=== PATIENT | female | born 1950 | race African-American/Black ===

== ENCOUNTER 2020-05-28 04:10 | Inpatient (IN) | payer OTHER ==
[2020-05-28] MEDS ORDERED: SUCCINYLCHOLINE CHLORIDE 200 MG/10 ML SYRINGE ONE (08:06)
[2020-05-28] MEDS ORDERED: PROPOFOL 20 ML ONE ×3 (08:06→08:11)
[2020-05-28] MEDS ORDERED: ceFAZolin 2 GRAM PREMIX BAG IVPB ONE (08:10)
[2020-05-28] MEDS ORDERED: KETAMINE HCL 200 MG/20 ML VIAL ONE (08:15)
[2020-05-28] MEDS ORDERED: EPHEDRINE SULFATE/0.9% NACL/PF 50 MG/10 ML SYRINGE NR ONE (08:54)
[2020-05-28] MEDS ORDERED: ONDANSETRON 4 MG/2 ML VIAL IVPUSH PRN (09:59)
[2020-05-28] MEDS ORDERED: oxyCODONE HCL 5 MG TABLET PO PRN (09:59)
[2020-05-28] MEDS ORDERED: LACTATED RINGERS SOLUTION 1,000 ML IV SCH (10:00)
[2020-05-28] MEDS ORDERED: oxyCODONE HCL 5 MG TABLET ONE ×2 (11:35→11:55)
[2020-05-28] MEDS ORDERED: ONDANSETRON 4 MG/2 ML VIAL ONE (11:39)
[2020-05-28] MEDS ORDERED: ONDANSETRON 4 MG/2 ML VIAL IVPB ONE (11:40)
[2020-05-28] MEDS ORDERED: oxyCODONE HCL 5 MG TABLET PO ONE (12:08)
[2020-05-28] MEDS ORDERED: DEXAMETHASONE SOD PHOSPHATE 4 MG/1 ML VIAL ONE (12:19)
[2020-05-28] MEDS ORDERED: DEXAMETHASONE SOD PHOSPHATE 4 MG/1 ML VIAL IVPB ONE (12:23)
[2020-05-28] MEDS ORDERED: DEXAMETHASONE SOD PHOSPHATE 20 MG/5 ML VIAL IVPB ONE (13:32)
[2020-05-28] MEDS ORDERED: PROMETHAZINE HCL 25 MG/1 ML VIAL IVPB ONE ×2 (14:25→14:38)
[2020-05-28] MEDS ORDERED: PROMETHAZINE HCL 25 MG/1 ML VIAL ONE (14:33)
[2020-05-28] MEDS ORDERED: ACETAMINOPHEN INJECTION 100 ML IVPB ONE (14:56)
[2020-05-28] MEDS ORDERED: ACETAMINOPHEN 1000 MG/100 ML VIAL (NON FORMULARY) IVPB ONE (14:58)
[2020-05-28] MEDS ORDERED: MIDAZOLAM HCL 2 MG/2 ML SINGLE DOSE VIAL IVPUSH ONE ×2 (16:28→16:50)
[2020-05-28] MEDS: SODIUM CHLORIDE 1,000 ML IV SCH (21:29)
[2020-05-29] MEDS: SODIUM CHLORIDE 1,000 ML IV SCH (05:59)
[2020-05-29 08:36] LABS: BASO % 0.5 % (0-2.0); EOS % 0.1 % (0-4.5); HEMATOCRIT 29.9 % (32.4-45.2); HEMOGLOBIN 9.9 GM/dL (10.7-15.3); LYMPH % 8.5 % (8-40); MCHC 33.3 g/dl (32.0-36.0); MEAN CELL VOLUME 87.2 fl (80-96); MEAN PLT VOLUME 9.2 fl (7.5-11.1); MONO % 5.4 % (3.8-10.2); NEUT % 85.5 % (42.8-82.8); PLATELET COUNT 244 K/MM3 (134-434); RBC 3.43 M/mm3 (3.60-5.2); RDW 18.8 % (11.6-15.6); WHITE BLOOD COUNT 13.9 K/mm3 (4.0-10.0)
[2020-05-29 08:52] LABS: POTASSIUM 4.4 mmol/L (3.5-5.1)
[2020-05-29 08:57] LABS: CALCIUM 8.9 mg/dL (8.5-10.1); MAGNESIUM 1.7 mg/dL (1.8-2.4)
[2020-05-29 09:00] LABS: CREATININE 1.4 mg/dL (0.55-1.3)
[2020-05-29 09:01] LABS: BLOOD UREA NITROGEN 21.4 mg/dL (7-18); PHOSPHOROUS 3.6 mg/dL (2.5-4.9)
[2020-05-29 09:02] LABS: BILIRUBIN,TOTAL 0.8 mg/dL (0.2-1)
[2020-05-29 09:03] LABS: ALBUMIN 2.8 g/dl (3.4-5.0)
[2020-05-29 09:05] LABS: TOT PROT 6.2 g/dl (6.4-8.2)
[2020-05-29] MEDS ORDERED: cefTRIAXone SODIUM 1 GM VIAL ONE (09:21)
[2020-05-29] MEDS ORDERED: DEXTROSE 5%-WATER - 50 ML IVPB ONE (09:21)
[2020-05-29] MEDS ORDERED: PT OWN MED DRAWER 7, Y5N ONE ×2 (09:21→21:14)
[2020-05-29] MEDS ORDERED: METHADONE 1 MG/ML PO SCH (09:30)
[2020-05-29] MEDS: CEFTRIAXONE 1 GM in DEXTROSE 5%-WATER - 50 ML IVPB SCH (09:35)
[2020-05-29] MEDS ORDERED: risperiDONE 0.5 MG TABLET PO SCH (10:00)
[2020-05-29] MEDS ORDERED: VENLAFAXINE HCL 37.5 MG E.R. CAPSULE PO SCH (10:00)
[2020-05-29] MEDS ORDERED: METHADONE HCL 5 MG TABLET PO SCH (10:00)
[2020-05-29] MEDS: METHADONE 1 MG/ML PO SCH (10:31)
[2020-05-29] MEDS ORDERED: DOCUSATE SODIUM 100 MG CAPSULE (FP) PO ONE (12:03)
[2020-05-29] MEDS ORDERED: ZOLPIDEM TARTRATE 5 MG TABLET PO PRN (14:07)
[2020-05-29] MEDS ORDERED: oxyCODONE HCL 5 MG TABLET PO PRN (15:17)
[2020-05-29 19:21] VITALS: BMI 27.7
[2020-05-29] MEDS: VENLAFAXINE HCL 37.5 MG E.R. CAPSULE PO SCH (22:40)
[2020-05-30] MEDS: METHADONE 1 MG/ML PO SCH (06:29)
[2020-05-30] MEDS ORDERED: PT OWN MED DRAWER 7, Y5N ONE (10:02)
[2020-05-30] MEDS ORDERED: cefTRIAXone SODIUM 1 GM VIAL ONE (10:02)
[2020-05-30] MEDS ORDERED: DEXTROSE 5%-WATER - 50 ML IVPB ONE (10:02)
[2020-05-30 10:04] LABS: BASO % 0.7 % (0-2.0); EOS % 0.4 % (0-4.5); HEMATOCRIT 29.5 % (32.4-45.2); HEMOGLOBIN 9.6 GM/dL (10.7-15.3); LYMPH % 16.9 % (8-40); MCH 28.8 pg (25.7-33.7); MCHC 32.4 g/dl (32.0-36.0); MEAN CELL VOLUME 88.9 fl (80-96); MEAN PLT VOLUME 9.6 fl (7.5-11.1); MONO % 9.4 % (3.8-10.2); NEUT % 72.6 % (42.8-82.8); PLATELET COUNT 253 K/MM3 (134-434); RBC 3.32 M/mm3 (3.60-5.2); RDW 18.6 % (11.6-15.6); WHITE BLOOD COUNT 12.7 K/mm3 (4.0-10.0)
[2020-05-30] MEDS: CEFTRIAXONE 1 GM in DEXTROSE 5%-WATER - 50 ML IVPB SCH (10:21)
[2020-05-30] MEDS: SODIUM CHLORIDE 1,000 ML IV SCH (10:22)
[2020-05-30 10:24] LABS: ALBUMIN 2.8 g/dl (3.4-5.0); BLOOD UREA NITROGEN 29.6 mg/dL (7-18); CALCIUM 9.3 mg/dL (8.5-10.1); MAGNESIUM 2.1 mg/dL (1.8-2.4)
[2020-05-30 10:27] LABS: CREATININE 1.7 mg/dL (0.55-1.3); PHOSPHOROUS 2.9 mg/dL (2.5-4.9)
[2020-05-30 10:28] LABS: BILIRUBIN,TOTAL 0.5 mg/dL (0.2-1)
[2020-05-30 10:29] LABS: TOT PROT 6.8 g/dl (6.4-8.2)
[2020-05-30] MEDS: VENLAFAXINE HCL 75 MG E.R. CAPSULES PO SCH (11:49)
[2020-05-30] MEDS: LACTATED RINGERS SOLUTION 1,000 ML/1,000 ML INFUS.BAG IV SCH (19:28)
[2020-05-30] MEDS: VENLAFAXINE HCL 37.5 MG E.R. CAPSULE PO SCH (22:11)
[2020-05-31] MEDS ORDERED: PT OWN MED DRAWER 7, Y5N ONE ×2 (05:25→20:58)
[2020-05-31] MEDS: METHADONE 1 MG/ML PO SCH (06:05)
[2020-05-31 10:13] LABS: BASO % 0.3 % (0-2.0); HEMATOCRIT 25.9 % (32.4-45.2); HEMOGLOBIN 8.9 GM/dL (10.7-15.3); MCH 29.7 pg (25.7-33.7); MCHC 34.3 g/dl (32.0-36.0); MEAN CELL VOLUME 86.8 fl (80-96); MEAN PLT VOLUME 8.8 fl (7.5-11.1); MONO % 10.8 % (3.8-10.2); NEUT % 67.9 % (42.8-82.8); PLATELET COUNT 256 K/MM3 (134-434); RBC 2.99 M/mm3 (3.60-5.2); RDW 18.1 % (11.6-15.6); WHITE BLOOD COUNT 9.9 K/mm3 (4.0-10.0)
[2020-05-31 10:44] LABS: BLOOD UREA NITROGEN 21.7 mg/dL (7-18); CREATININE 1.4 mg/dL (0.55-1.3); PHOSPHOROUS 2.9 mg/dL (2.5-4.9)
[2020-05-31 10:45] LABS: ALBUMIN 2.7 g/dl (3.4-5.0); BILIRUBIN,TOTAL 0.4 mg/dL (0.2-1); TOT PROT 6.2 g/dl (6.4-8.2)
[2020-05-31 10:49] LABS: CALCIUM 9.2 mg/dL (8.5-10.1)
[2020-05-31] MEDS ORDERED: cefTRIAXone SODIUM 1 GM VIAL ONE (10:59)
[2020-05-31] MEDS ORDERED: DEXTROSE 5%-WATER - 50 ML IVPB ONE (10:59)
[2020-05-31] MEDS: VENLAFAXINE HCL 75 MG E.R. CAPSULES PO SCH (11:06)
[2020-05-31] MEDS: ACETAMINOPHEN 500 MG TABLET (FP) PO PRN (11:12)
[2020-05-31] MEDS: CEFTRIAXONE 1 GM in DEXTROSE 5%-WATER - 50 ML IVPB SCH (13:57)
[2020-05-31] MEDS: LACTATED RINGERS SOLUTION 1,000 ML/1,000 ML INFUS.BAG IV SCH (17:12)
[2020-05-31] MEDS: NICOTINE 14 MG/24 HOURS TOPICAL PATCH TD SCH (17:12)
[2020-05-31] MEDS: VENLAFAXINE HCL 37.5 MG E.R. CAPSULE PO SCH (21:04)
[2020-06-01] MEDS: METHADONE 1 MG/ML PO SCH (05:32)
[2020-06-01] MEDS: LACTATED RINGERS SOLUTION 1,000 ML/1,000 ML INFUS.BAG IV SCH ×2 (05:35→18:16)
[2020-06-01] MEDS ORDERED: cefTRIAXone SODIUM 1 GM VIAL ONE (09:03)
[2020-06-01] MEDS ORDERED: DEXTROSE 5%-WATER - 50 ML IVPB ONE (09:04)
[2020-06-01] MEDS: VENLAFAXINE HCL 75 MG E.R. CAPSULES PO SCH (09:08)
[2020-06-01] MEDS: CEFTRIAXONE 1 GM in DEXTROSE 5%-WATER - 50 ML IVPB SCH (09:08)
[2020-06-01 09:33] LABS: BASO % 0.5 % (0-2.0); EOS % 1.1 % (0-4.5); HEMATOCRIT 26.4 % (32.4-45.2); HEMOGLOBIN 8.8 GM/dL (10.7-15.3); LYMPH % 24.6 % (8-40); MCH 29.2 pg (25.7-33.7); MCHC 33.3 g/dl (32.0-36.0); MEAN CELL VOLUME 87.7 fl (80-96); MEAN PLT VOLUME 8.7 fl (7.5-11.1); MONO % 9.5 % (3.8-10.2); NEUT % 64.3 % (42.8-82.8); PLATELET COUNT 280 K/MM3 (134-434); RBC 3.01 M/mm3 (3.60-5.2); RDW 17.9 % (11.6-15.6); WHITE BLOOD COUNT 9.2 K/mm3 (4.0-10.0)
[2020-06-01 09:54] LABS: POTASSIUM 4.4 mmol/L (3.5-5.1)
[2020-06-01 10:01] LABS: ALBUMIN 2.8 g/dl (3.4-5.0); CALCIUM 9.6 mg/dL (8.5-10.1)
[2020-06-01 10:02] LABS: BLOOD UREA NITROGEN 16.3 mg/dL (7-18); MAGNESIUM 1.9 mg/dL (1.8-2.4)
[2020-06-01 10:05] LABS: CREATININE 1.3 mg/dL (0.55-1.3)
[2020-06-01 10:06] LABS: BILIRUBIN,TOTAL 0.4 mg/dL (0.2-1); PHOSPHOROUS 3.3 mg/dL (2.5-4.9); TOT PROT 6.3 g/dl (6.4-8.2)
[2020-06-01] MEDS ORDERED: MIDAZOLAM HCL 2 MG/2 ML SINGLE DOSE VIAL ONE (16:06)
[2020-06-01] MEDS: MIDAZOLAM HCL 2 MG/2 ML SINGLE DOSE VIAL IVPUSH SCH ×2 (16:15→16:20)
[2020-06-01] MEDS: NICOTINE 14 MG/24 HOURS TOPICAL PATCH TD SCH (18:07)
[2020-06-01] MEDS: LISINOPRIL 10 MG TABLET PO SCH (18:07)
[2020-06-01] MEDS: ACETAMINOPHEN 500 MG TABLET (FP) PO PRN (18:14)
[2020-06-01] MEDS ORDERED: PT OWN MED DRAWER 7, Y5N ONE (21:23)
[2020-06-01] MEDS: VENLAFAXINE HCL 37.5 MG E.R. CAPSULE PO SCH (21:27)
[2020-06-02] MEDS: METHADONE 1 MG/ML PO SCH (05:51)
[2020-06-02 09:11] LABS: BASO % 0.8 % (0-2.0); EOS % 0.7 % (0-4.5); HEMATOCRIT 27.1 % (32.4-45.2); HEMOGLOBIN 9.3 GM/dL (10.7-15.3); LYMPH % 16.3 % (8-40); MCH 29.6 pg (25.7-33.7); MCHC 34.2 g/dl (32.0-36.0); MEAN CELL VOLUME 86.6 fl (80-96); MEAN PLT VOLUME 8.6 fl (7.5-11.1); MONO % 8.9 % (3.8-10.2); NEUT % 73.3 % (42.8-82.8); PLATELET COUNT 294 K/MM3 (134-434); RBC 3.13 M/mm3 (3.60-5.2); RDW 17.7 % (11.6-15.6); WHITE BLOOD COUNT 10.5 K/mm3 (4.0-10.0)
[2020-06-02 09:31] LABS: POTASSIUM 3.7 mmol/L (3.5-5.1)
[2020-06-02 09:37] LABS: ALBUMIN 2.8 g/dl (3.4-5.0); BLOOD UREA NITROGEN 12.1 mg/dL (7-18); CALCIUM 9.4 mg/dL (8.5-10.1); MAGNESIUM 1.8 mg/dL (1.8-2.4)
[2020-06-02 09:40] LABS: CREATININE 1.4 mg/dL (0.55-1.3); PHOSPHOROUS 3.6 mg/dL (2.5-4.9)
[2020-06-02 09:41] LABS: BILIRUBIN,TOTAL 0.7 mg/dL (0.2-1); TOT PROT 6.7 g/dl (6.4-8.2)
[2020-06-02] MEDS ORDERED: cefTRIAXone SODIUM 1 GM VIAL ONE (10:36)
[2020-06-02] MEDS ORDERED: DEXTROSE 5%-WATER - 50 ML IVPB ONE (10:36)
[2020-06-02] MEDS: NICOTINE 14 MG/24 HOURS TOPICAL PATCH TD SCH (10:40)
[2020-06-02] MEDS: VENLAFAXINE HCL 75 MG E.R. CAPSULES PO SCH (10:40)
[2020-06-02] MEDS: ACETAMINOPHEN 500 MG TABLET (FP) PO PRN (10:42)
[2020-06-02] MEDS: LISINOPRIL 10 MG TABLET PO SCH (10:42)
[2020-06-02] MEDS: CEFTRIAXONE 1 GM in DEXTROSE 5%-WATER - 50 ML IVPB SCH (10:43)
[2020-06-02] MEDS ORDERED: LISINOPRIL 10 MG TABLET PO ONE (14:01)
[2020-06-02] MEDS: LACTATED RINGERS SOLUTION 1,000 ML/1,000 ML INFUS.BAG IV SCH (14:44)
[2020-06-02] MEDS: SODIUM CHLORIDE 500 ML IV SCH ×2 (19:04→19:06)
[2020-06-02] MEDS ORDERED: PT OWN MED DRAWER 7, Y5N ONE (22:08)
[2020-06-02] MEDS: VENLAFAXINE HCL 37.5 MG E.R. CAPSULE PO SCH (22:10)
[2020-06-03] MEDS: METHADONE 1 MG/ML PO SCH (07:07)
[2020-06-03 09:00] LABS: BASO % 0.2 % (0-2.0); HEMATOCRIT 24.5 % (32.4-45.2); HEMOGLOBIN 8.3 GM/dL (10.7-15.3); LYMPH % 22.7 % (8-40); MCH 29.5 pg (25.7-33.7); MCHC 33.9 g/dl (32.0-36.0); MEAN CELL VOLUME 87.2 fl (80-96); MEAN PLT VOLUME 8.8 fl (7.5-11.1); MONO % 9.5 % (3.8-10.2); NEUT % 66.6 % (42.8-82.8); PLATELET COUNT 290 K/MM3 (134-434); RBC 2.81 M/mm3 (3.60-5.2); RDW 17.7 % (11.6-15.6); WHITE BLOOD COUNT 8.2 K/mm3 (4.0-10.0)
[2020-06-03 09:22] LABS: ALBUMIN 2.7 g/dl (3.4-5.0); BLOOD UREA NITROGEN 13.2 mg/dL (7-18); CALCIUM 8.9 mg/dL (8.5-10.1); MAGNESIUM 1.9 mg/dL (1.8-2.4)
[2020-06-03 09:25] LABS: CREATININE 1.5 mg/dL (0.55-1.3)
[2020-06-03 09:27] LABS: BILIRUBIN,TOTAL 0.4 mg/dL (0.2-1); PHOSPHOROUS 3.2 mg/dL (2.5-4.9); TOT PROT 6.3 g/dl (6.4-8.2)
[2020-06-03] MEDS ORDERED: cefTRIAXone SODIUM 1 GM VIAL ONE (09:34)
[2020-06-03] MEDS ORDERED: DEXTROSE 5%-WATER - 50 ML IVPB ONE (09:35)
[2020-06-03] MEDS: VENLAFAXINE HCL 75 MG E.R. CAPSULES PO SCH (09:45)
[2020-06-03] MEDS: NICOTINE 14 MG/24 HOURS TOPICAL PATCH TD SCH (09:46)
[2020-06-03] MEDS: CEFTRIAXONE 1 GM in DEXTROSE 5%-WATER - 50 ML IVPB SCH (09:46)
[2020-06-03] MEDS ORDERED: LISINOPRIL 20 MG TABLET PO SCH (10:00)
[2020-06-03 10:25] VITALS: BP 158/83; PULSE 64; TEMP 98.5
== END 2020-06-03 12:49 | disposition home or self-care (01) | DRG 657 ==
LOC: JASU-SURG 04:10 → J2C 14:25 → J6S 19:17
PROVIDERS: ADMIT Urology; ATTEND Internal Medicine
PROC: 0TJ98ZZ Inspection of Ureter, Via Natural or Artificial Opening Endoscopic (ICD-10-PCS; 2020-05-28)
PROC: 0T9380Z Drainage of Right Kidney Pelvis with Drainage Device, Via Natural or Artificial Opening Endoscopic (ICD-10-PCS; principal; 2020-05-28 08:00)
PROC: BT1DZZZ Fluoroscopy of Right Kidney, Ureter and Bladder (ICD-10-PCS; 2020-05-28 08:00)
PROC: 0T9680Z Drainage of Right Ureter with Drainage Device, Via Natural or Artificial Opening Endoscopic (ICD-10-PCS; 2020-06-01)
PROC: 0T25X0Z Change Drainage Device in Kidney, External Approach (ICD-10-PCS; 2020-06-01)
DX: C65.9 Malignant neoplasm of unspecified renal pelvis (principal); T80.818A Extravasation of other vesicant agent, initial encounter; F11.20 Opioid dependence, uncomplicated; N13.30 Unspecified hydronephrosis; N17.9 Acute kidney failure, unspecified; R31.0 Gross hematuria; D72.829 Elevated white blood cell count, unspecified; Z85.3 Personal history of malignant neoplasm of breast; I10 Essential (primary) hypertension; F17.210 Nicotine dependence, cigarettes, uncomplicated
CPT/HCPCS: 36415; 50432; 50435; 50693; 74178-TC; 76000-TC-FY; 80048; 80053; 83735; 84100; 84703; 85025; 87070; 87075; 87102; 87116; 87205; 87206; 87210; 88108; 88305-TC; 94760; J0131; Q9967

== ENCOUNTER 2020-06-25 04:43 | Day surgery (SDC) | payer OTHER ==
[2020-06-22 11:51] VITALS: BMI 26.6
[2020-06-25] MEDS ORDERED: PROPOFOL 20 ML ONE ×2 (11:41)
[2020-06-25] MEDS ORDERED: MIDAZOLAM HCL 2 MG/2 ML SINGLE DOSE VIAL ONE (11:42)
[2020-06-25] MEDS ORDERED: LIDOCAINE HCL/PF 2% SDV 5ML VIAL ONE (11:42)
[2020-06-25] MEDS ORDERED: DEXAMETHASONE SOD PHOSPHATE 4 MG/1 ML VIAL ONE (11:42)
[2020-06-25] MEDS ORDERED: ceFAZolin SODIUM 1 GM VIAL ONE (11:44)
[2020-06-25] MEDS ORDERED: ceFAZolin 2 GRAM PREMIX BAG IVPB ONE (12:11)
[2020-06-25 15:18] VITALS: PULSE 62
[2020-06-25 15:22] VITALS: BP 140/76; TEMP 97.8
== END 2020-06-25 15:35 | disposition home or self-care (01) ==
LOC: JASU-SURG 04:43
PROVIDERS: ATTEND Urology
PROC: 0TB38ZX Excision of Right Kidney Pelvis, Via Natural or Artificial Opening Endoscopic, Diagnostic (ICD-10-PCS; principal; 2020-06-25 10:30)
PROC: 0T538ZZ Destruction of Right Kidney Pelvis, Via Natural or Artificial Opening Endoscopic (ICD-10-PCS; 2020-06-25 10:30)
PROC: 0T9680Z Drainage of Right Ureter with Drainage Device, Via Natural or Artificial Opening Endoscopic (ICD-10-PCS; 2020-06-25 10:30)
DX: D41.11 Neoplasm of uncertain behavior of right renal pelvis (principal); N13.30 Unspecified hydronephrosis
CPT/HCPCS: 76000-TC-FY; 88300-TC; 88305-TC; 94760

== ENCOUNTER 2021-09-16 04:24 | Day surgery (SDC) | payer OTHER ==
[2021-09-15 11:37] VITALS: BMI 30.7
[2021-09-16] MEDS ORDERED: LIDOCAINE HCL 2% 100 MG/5 ML DISP.SYRIN ONE (13:27)
[2021-09-16] MEDS ORDERED: DEXAMETHASONE SOD PHOSPHATE 4 MG/1 ML VIAL ONE (13:27)
[2021-09-16] MEDS ORDERED: KETOROLAC TROMETHAMINE 30 MG/1 ML VIAL ONE (13:27)
[2021-09-16] MEDS ORDERED: PROPOFOL 20 ML ONE (13:29)
[2021-09-16] MEDS ORDERED: MIDAZOLAM HCL 2 MG/2 ML SINGLE DOSE VIAL ONE (13:29)
[2021-09-16] MEDS ORDERED: ceFAZolin SODIUM 1 GM VIAL ONE (13:53)
[2021-09-16] MEDS ORDERED: ceFAZolin SODIUM 1 GM VIAL IVPB ONE (13:55)
[2021-09-16] MEDS ORDERED: LABETALOL HCL 5 MG/1 ML (100MG/20 ML VIAL) IVPUSH ONE ×3 (14:40→14:50)
[2021-09-16] MEDS ORDERED: LABETALOL HCL 5 MG/1 ML (100MG/20 ML VIAL) IVPUSH PRN (14:40)
[2021-09-16] MEDS ORDERED: ONDANSETRON 4 MG/2 ML VIAL IVPUSH PRN (14:40)
[2021-09-16] MEDS ORDERED: LACTATED RINGERS SOLUTION 1,000 ML IV SCH (14:45)
[2021-09-16] MEDS ORDERED: hydrALAZINE HCL 20 MG/ML VIAL IVPUSH PRN (14:45)
[2021-09-16] MEDS ORDERED: FENTANYL CITRATE/PF 50 MCG/ML VIAL ONE (15:01)
[2021-09-16] MEDS ORDERED: hydrALAZINE HCL 20 MG/ML VIAL IVPUSH ONE (15:15)
[2021-09-16 16:38] VITALS: PULSE 89
[2021-09-16 18:19] VITALS: BP 146/72; TEMP 97.9
== END 2021-09-16 17:45 | disposition home or self-care (01) ==
LOC: JASUSAT 04:24
PROVIDERS: ATTEND Urology
PROC: 0T5B8ZZ Destruction of Bladder, Via Natural or Artificial Opening Endoscopic (ICD-10-PCS; principal; 2021-09-16 13:30)
DX: C67.9 Malignant neoplasm of bladder, unspecified (principal)
CPT/HCPCS: 88305-TC; 94760

== ENCOUNTER 2021-10-30 19:37 | Inpatient (IN) | payer OTHER ==
[2021-10-30 19:46] VITALS: BMI 27.4
[2021-10-30] MEDS ORDERED: ADENOSINE 6 MG/2 ML VIAL IVPUSH ONE ×3 (20:25→20:45)
[2021-10-30] MEDS ORDERED: dilTIAZem HCL 125 MG/25 ML - 25 ML VIAL ONE (20:45)
[2021-10-30] MEDS ORDERED: SODIUM CHLORIDE 0.9% 500 ML INFUS.BAG IV ONE (20:46)
[2021-10-30] MEDS ORDERED: dilTIAZem HCL 50 MG/10 ML - 10 ML VIAL IVPUSH ONE (20:46)
[2021-10-30 21:03] LABS: BASO % 0.6 % (0-2.0); EOS % 0.9 % (0-4.5); HEMATOCRIT 33.2 % (32.4-45.2); LYMPH % 25.5 % (8-40); MCH 28.1 pg (25.7-33.7); MCHC 33.2 g/dl (32.0-36.0); MEAN CELL VOLUME 84.7 fl (80-96); MEAN PLT VOLUME 8.6 fl (7.5-11.1); MONO % 10.3 % (3.8-10.2); NEUT % 62.7 % (42.8-82.8); PLATELET COUNT 382 10^3/uL (134-434); RBC 3.91 M/mm3 (3.60-5.2); RDW 15.8 % (11.6-15.6)
[2021-10-30 21:32] LABS: BLOOD UREA NITROGEN 16.7 mg/dL (7-18)
[2021-10-30 21:35] LABS: CREATININE 1.9 mg/dL (0.55-1.3); PHOSPHOROUS 2.8 mg/dL (2.5-4.9)
[2021-10-30 21:37] LABS: BILIRUBIN,TOTAL 0.4 mg/dL (0.2-1); TOT PROT 7.4 g/dl (6.4-8.2)
[2021-10-30 21:39] LABS: N-TERMINAL BNP 4181.4 pg/ml (5-125)
[2021-10-31] MEDS ORDERED: oxyCODONE HCL 5 MG TABLET PO PRN (02:41)
[2021-10-31] MEDS ORDERED: HEPARIN NA (PORCINE) 5,000 UNITS/ML 1ML VIAL IVPUSH PRN ×2 (02:45)
[2021-10-31] MEDS ORDERED: HEPARIN - 25,000 UNIT in SODIUM CHLORIDE 495 ML IV SCH (02:45)
[2021-10-31] MEDS ORDERED: HEPARIN NA (PORCINE) 5,000 UNITS/ML 1ML VIAL IVPUSH ONE (02:45)
[2021-10-31] MEDS ORDERED: SODIUM CHLORIDE 1,000 ML IV SCH (03:00)
[2021-10-31] MEDS ORDERED: METOPROLOL TARTRATE 50 MG TABLET (FP) PO ONE (04:00)
[2021-10-31] MEDS ORDERED: HEPARIN NA (PORCINE) 5,000 UNITS/ML 1ML VIAL ONE (04:19)
[2021-10-31] MEDS ORDERED: HEPARIN INFUSION - 25,000 UNITS/500 ML INFUS.BAG IVPB ONE (04:20)
[2021-10-31] MEDS ORDERED: ZOLPIDEM TARTRATE 5 MG TABLET PO PRN (04:51)
[2021-10-31] MEDS ORDERED: HEPARIN INFUSION - 25,000 UNITS/500 ML INFUS.BAG IVPB SCH (05:00)
[2021-10-31] MEDS ORDERED: METOPROLOL TARTRATE 50 MG TABLET (FP) ONE ×2 (06:25→09:54)
[2021-10-31 06:48] LABS: EPI CELLS 10 /uL (0-25.1); HYALINE CASTS 10 /uL (0-3.1); PH,URINE 5.5 (5.0-8.0); URINE APPEARANCE CLOUDY; URINE BACTERIA 211 /uL (0-1359); URINE BILIRUBIN 1+ (NEGATIVE); URINE COLOR DK YELLOW; URINE GLUCOSE (UA) NEGATIVE (NEGATIVE); URINE KETONE TRACE (NEGATIVE); URINE LEUK ESTERASE 2+ (NEGATIVE); URINE NITRITE NEGATIVE (NEGATIVE); URINE PROTEIN 2+ (NEGATIVE); URINE WBC 479 /uL (0-25.8)
[2021-10-31 07:15] LABS: URINE RBC 30.9 /uL (0-23.9)
[2021-10-31] MEDS: SODIUM CHLORIDE 1,000 ML IV SCH (09:43)
[2021-10-31] MEDS ORDERED: risperiDONE 0.5 MG TABLET ONE (09:54)
[2021-10-31] MEDS: VENLAFAXINE HCL 75 MG E.R. CAPSULES PO SCH (10:06)
[2021-10-31] MEDS: METOPROLOL TARTRATE 50 MG TABLET (FP) PO SCH (10:06)
[2021-10-31] MEDS: risperiDONE 0.5 MG TABLET PO SCH (10:07)
[2021-10-31 10:11] LABS: HEMATOCRIT 29.5 % (32.4-45.2); HEMOGLOBIN 9.9 GM/dL (10.7-15.3); MCH 28.5 pg (25.7-33.7); MCHC 33.5 g/dl (32.0-36.0); MEAN PLT VOLUME 8.9 fl (7.5-11.1); PLATELET COUNT 373 10^3/uL (134-434); RBC 3.47 M/mm3 (3.60-5.2); WHITE BLOOD COUNT 9.1 K/mm3 (4.0-10.0)
[2021-10-31] MEDS ORDERED: CEFTRIAXONE 1 GM/50 ML BAG ONE (19:17)
[2021-10-31] MEDS: CEFTRIAXONE 1 GM in DEXTROSE 5%-WATER - 50 ML IVPB SCH (19:22)
[2021-11-01] MEDS: risperiDONE 0.5 MG TABLET PO SCH ×3 (00:38→22:25)
[2021-11-01] MEDS: METOPROLOL TARTRATE 50 MG TABLET (FP) PO SCH ×3 (00:38→22:25)
[2021-11-01] MEDS: SODIUM CHLORIDE 1,000 ML IV SCH ×2 (00:48→08:55)
[2021-11-01 08:42] LABS: BASO % 0.3 % (0-2.0); EOS % 0.8 % (0-4.5); HEMOGLOBIN 9.7 GM/dL (10.7-15.3); LYMPH % 17.8 % (8-40); MCH 28.5 pg (25.7-33.7); MCHC 33.5 g/dl (32.0-36.0); MEAN CELL VOLUME 85.2 fl (80-96); MEAN PLT VOLUME 9.6 fl (7.5-11.1); MONO % 7.1 % (3.8-10.2); PLATELET COUNT 371 10^3/uL (134-434); RDW 15.6 % (11.6-15.6); WHITE BLOOD COUNT 9.6 K/mm3 (4.0-10.0)
[2021-11-01 08:55] LABS: CALCIUM 9.4 mg/dL (8.5-10.1)
[2021-11-01 08:56] LABS: ALBUMIN 2.8 g/dl (3.4-5.0); BLOOD UREA NITROGEN 18.7 mg/dL (7-18); MAGNESIUM 2.2 mg/dL (1.8-2.4)
[2021-11-01 08:59] LABS: BILIRUBIN,TOTAL 0.6 mg/dL (0.2-1); CREATININE 1.6 mg/dL (0.55-1.3); TOT PROT 7.4 g/dl (6.4-8.2)
[2021-11-01] MEDS: VENLAFAXINE HCL 75 MG E.R. CAPSULES PO SCH (09:20)
[2021-11-01] MEDS: CEFTRIAXONE 1 GM in DEXTROSE 5%-WATER - 50 ML IVPB SCH (09:46)
[2021-11-01] MEDS: APIXABAN 5 MG TABLET PO SCH ×2 (11:27→22:25)
[2021-11-01] MEDS ORDERED: SODIUM CHLORIDE 0.45% 1,000 ML IV SCH (15:00)
[2021-11-01] MEDS ORDERED: ONDANSETRON 4 MG/2 ML VIAL IVPUSH PRN (15:08)
[2021-11-02 08:30] LABS: BASO % 0.3 % (0-2.0); EOS % 0.6 % (0-4.5); LYMPH % 12.9 % (8-40); MCH 28.7 pg (25.7-33.7); MCHC 33.3 g/dl (32.0-36.0); MEAN CELL VOLUME 86.1 fl (80-96); MEAN PLT VOLUME 9.2 fl (7.5-11.1); MONO % 6.9 % (3.8-10.2); NEUT % 79.3 % (42.8-82.8); PLATELET COUNT 367 10^3/uL (134-434); RBC 3.48 M/mm3 (3.60-5.2); RDW 15.5 % (11.6-15.6); WHITE BLOOD COUNT 10.6 K/mm3 (4.0-10.0)
[2021-11-02] MEDS: METOPROLOL TARTRATE 50 MG TABLET (FP) PO SCH ×2 (09:46→21:44)
[2021-11-02] MEDS: APIXABAN 5 MG TABLET PO SCH (09:46)
[2021-11-02] MEDS: CEFTRIAXONE 1 GM in DEXTROSE 5%-WATER - 50 ML IVPB SCH (09:46)
[2021-11-02] MEDS: risperiDONE 0.5 MG TABLET PO SCH ×2 (09:46→21:44)
[2021-11-02] MEDS: VENLAFAXINE HCL 75 MG E.R. CAPSULES PO SCH (09:46)
[2021-11-02] MEDS: ENOXAPARIN NA (PORCINE) 80 MG/0.8 ML DISP.SYRIN SQ SCH (16:19)
[2021-11-03] MEDS: ENOXAPARIN NA (PORCINE) 80 MG/0.8 ML DISP.SYRIN SQ SCH ×2 (05:00→15:09)
[2021-11-03 08:38] LABS: BASO % 0.6 % (0-2.0); EOS % 1.4 % (0-4.5); HEMATOCRIT 27.1 % (32.4-45.2); HEMOGLOBIN 9.1 GM/dL (10.7-15.3); LYMPH % 18.8 % (8-40); MCH 28.9 pg (25.7-33.7); MCHC 33.6 g/dl (32.0-36.0); MEAN CELL VOLUME 86.1 fl (80-96); MONO % 8.5 % (3.8-10.2); NEUT % 70.7 % (42.8-82.8); PLATELET COUNT 371 10^3/uL (134-434); RBC 3.15 M/mm3 (3.60-5.2); RDW 15.7 % (11.6-15.6); WHITE BLOOD COUNT 7.5 K/mm3 (4.0-10.0)
[2021-11-03 09:35] LABS: CALCIUM 9.2 mg/dL (8.5-10.1); MAGNESIUM 2.3 mg/dL (1.8-2.4)
[2021-11-03 09:37] LABS: ALBUMIN 2.6 g/dl (3.4-5.0); BLOOD UREA NITROGEN 19.4 mg/dL (7-18)
[2021-11-03 09:39] LABS: CREATININE 1.7 mg/dL (0.55-1.3)
[2021-11-03] MEDS: CEFTRIAXONE 1 GM in DEXTROSE 5%-WATER - 50 ML IVPB SCH (09:40)
[2021-11-03] MEDS: METOPROLOL TARTRATE 50 MG TABLET (FP) PO SCH (09:40)
[2021-11-03 09:41] LABS: BILIRUBIN,TOTAL 0.3 mg/dL (0.2-1)
[2021-11-03] MEDS: VENLAFAXINE HCL 75 MG E.R. CAPSULES PO SCH (09:41)
[2021-11-03] MEDS: risperiDONE 0.5 MG TABLET PO SCH (09:41)
[2021-11-03 09:42] LABS: TOT PROT 6.7 g/dl (6.4-8.2)
[2021-11-03 14:42] VITALS: BP 140/76; PULSE 68; RESP 18; TEMP 99.7
[2021-11-03] MEDS ORDERED: FUROSEMIDE 20 MG TABLET (FP) PO ONE (15:00)
== END 2021-11-03 16:24 | disposition short-term general hospital (02) | DRG 309 ==
LOC: JER 19:37 → JERBED 22:01 → J4W 10-31 23:28
PROVIDERS: ADMIT Hospitalist; ATTEND Nurse Practitioner Acute Care
DX: I48.91 Unspecified atrial fibrillation (principal); I13.0 Hypertensive heart and chronic kidney disease with heart failure and stage 1 through stage 4 chronic kidney disease, or unspecified chronic kidney disease; N17.9 Acute kidney failure, unspecified; N39.0 Urinary tract infection, site not specified; I50.22 Chronic systolic (congestive) heart failure; F32.A Depression, unspecified; E86.0 Dehydration; N18.9 Chronic kidney disease, unspecified; E78.5 Hyperlipidemia, unspecified; I27.20 Pulmonary hypertension, unspecified; I47.1 Supraventricular tachycardia; R79.89 Other specified abnormal findings of blood chemistry; R13.10 Dysphagia, unspecified; Z85.3 Personal history of malignant neoplasm of breast; Z85.53 Personal history of malignant neoplasm of renal pelvis; Z85.51 Personal history of malignant neoplasm of bladder; Z90.5 Acquired absence of kidney
CPT/HCPCS: 36415; 71045-TC-FY; 74018-TC-FY; 80053; 81003; 82962; 83735; 83880; 84100; 84443; 84484; 85025; 85027; 85379; 85730; 87086; 93005; 93010; 93306-TC; 93970-TC; 97116-GP; 97162-GP; 99285-25; C9803-CS; J1644; U0003; U0005

== ENCOUNTER 2021-11-22 23:58 | Observation (INO) | payer OTHER ==
[2021-11-23 00:30] VITALS: BMI 30.4
[2021-11-23 01:49] LABS: BASO % 0.7 % (0-2.0); EOS % 0.4 % (0-4.5); HEMATOCRIT 31.2 % (32.4-45.2); HEMOGLOBIN 10.6 GM/dL (10.7-15.3); MCH 28.1 pg (25.7-33.7); MCHC 33.8 g/dl (32.0-36.0); MEAN CELL VOLUME 83.3 fl (80-96); MONO % 8.4 % (3.8-10.2); NEUT % 76.5 % (42.8-82.8); PLATELET COUNT 301 10^3/uL (134-434); RBC 3.75 M/mm3 (3.60-5.2); RDW 15.8 % (11.6-15.6); WHITE BLOOD COUNT 10.1 K/mm3 (4.0-10.0)
[2021-11-23 01:57] LABS: INR 2.38 (0.83-1.09); PROTHROMBIN TIME (PATIENT) 27.6 SEC (9.7-13.0)
[2021-11-23 02:10] LABS: ALBUMIN 2.9 g/dl (3.4-5.0); BLOOD UREA NITROGEN 31.2 mg/dL (7-18); MAGNESIUM 2.3 mg/dL (1.8-2.4)
[2021-11-23 02:12] LABS: CREATININE 2.6 mg/dL (0.55-1.3)
[2021-11-23 02:14] LABS: BILIRUBIN,TOTAL 0.3 mg/dL (0.2-1); TOT PROT 7.2 g/dl (6.4-8.2)
[2021-11-23] MEDS ORDERED: SODIUM CHLORIDE 0.9% 500 ML INFUS.BAG IV ONE (02:43)
[2021-11-23] MEDS ORDERED: POTASSIUM CHLORIDE ORAL LIQUID 20 MEQ/15 ML PO SCH ×2 (07:00→10:00)
[2021-11-23] MEDS ORDERED: POTASSIUM CHLORIDE ORAL LIQUID 20 MEQ/15 ML ONE (07:23)
[2021-11-23] MEDS: POTASSIUM CHLORIDE ORAL LIQUID 20 MEQ/15 ML PO SCH (07:30)
[2021-11-23] MEDS ORDERED: NICOTINE 7 MG/24 HOURS TOPICAL PATCH TD ONE (10:04)
[2021-11-23] MEDS ORDERED: APIXABAN 5 MG TABLET ONE ×2 (10:04→21:34)
[2021-11-23] MEDS: NICOTINE 7 MG/24 HOURS TOPICAL PATCH TD SCH (10:07)
[2021-11-23] MEDS: APIXABAN 5 MG TABLET PO SCH ×2 (10:07→22:34)
[2021-11-23] MEDS ORDERED: SODIUM CHLORIDE 1,000 ML IV SCH (12:00)
[2021-11-23] MEDS ORDERED: risperiDONE 0.5 MG TABLET ONE (21:34)
[2021-11-23] MEDS ORDERED: VENLAFAXINE HCL 37.5 MG E.R. CAPSULE PO SCH (22:00)
[2021-11-23] MEDS: risperiDONE 0.5 MG TABLET PO SCH (22:34)
[2021-11-24 04:21] VITALS: TEMP 97.6
[2021-11-24] MEDS ORDERED: POTASSIUM CHLORIDE ORAL LIQUID 20 MEQ/15 ML ONE (06:02)
[2021-11-24] MEDS: POTASSIUM CHLORIDE ORAL LIQUID 20 MEQ/15 ML PO SCH (06:22)
[2021-11-24] MEDS ORDERED: VENLAFAXINE HCL 37.5 MG E.R. CAPSULE PO SCH (10:00)
[2021-11-24] MEDS ORDERED: VENLAFAXINE HCL 150 MG E.R. CAPSULE PO SCH (10:00)
[2021-11-24] MEDS ORDERED: SACUBITRIL/VALSARTAN 24 MG-26 MG TABLET PO SCH (10:00)
[2021-11-24] MEDS ORDERED: SODIUM CHLORIDE 0.9% 500 ML INFUS.BAG IV ONE ×2 (10:02→12:06)
[2021-11-24] MEDS: NICOTINE 7 MG/24 HOURS TOPICAL PATCH TD SCH (10:30)
[2021-11-24] MEDS ORDERED: APIXABAN 5 MG TABLET ONE (10:34)
[2021-11-24] MEDS ORDERED: risperiDONE 0.5 MG TABLET ONE (10:34)
[2021-11-24] MEDS: risperiDONE 0.5 MG TABLET PO SCH (10:46)
[2021-11-24] MEDS: APIXABAN 5 MG TABLET PO SCH (10:46)
[2021-11-24] MEDS ORDERED: VENLAFAXINE HCL 75 MG E.R. CAPSULES PO SCH (10:56)
[2021-11-24 11:01] LABS: BASO % 0.3 % (0-2.0); EOS % 0.8 % (0-4.5); HEMOGLOBIN 11.3 GM/dL (10.7-15.3); LYMPH % 25.1 % (8-40); MCH 27.5 pg (25.7-33.7); MCHC 32.2 g/dl (32.0-36.0); MEAN CELL VOLUME 85.2 fl (80-96); MEAN PLT VOLUME 9.4 fl (7.5-11.1); MONO % 5.9 % (3.8-10.2); NEUT % 67.9 % (42.8-82.8); PLATELET COUNT 294 10^3/uL (134-434); RBC 4.11 M/mm3 (3.60-5.2); WHITE BLOOD COUNT 6.1 K/mm3 (4.0-10.0)
[2021-11-24 11:18] LABS: CALCIUM 9.9 mg/dL (8.5-10.1); MAGNESIUM 2.2 mg/dL (1.8-2.4)
[2021-11-24 12:17] VITALS: RESP 24
[2021-11-24] MEDS ORDERED: SODIUM CHLORIDE 0.9% 1000 ML INFUS.BAG IV ONE (13:50)
[2021-11-24] MEDS ORDERED: CARVEDILOL 25 MG TABLET (FP) PO SCH ×2 (16:30→22:00)
[2021-11-24 16:57] VITALS: BP 115/68; PULSE 51
== END 2021-11-24 17:45 | disposition home or self-care (01) ==
LOC: JER 23:58 → JERBED 11-23 04:00 → UNDOADMOB 11-23 04:00 → OBSVTOIN 11-23 06:11 → INTOOBSV 11-23 06:11 → JERBED 11-23 12:55
PROVIDERS: ADMIT Internal Medicine
PROC: 3E0337Z Introduction of Electrolytic and Water Balance Substance into Peripheral Vein, Percutaneous Approach (ICD-10-PCS; principal; 2021-11-23)
DX: I12.9 Hypertensive chronic kidney disease with stage 1 through stage 4 chronic kidney disease, or unspecified chronic kidney disease (principal); N17.9 Acute kidney failure, unspecified; Z90.5 Acquired absence of kidney; R55 Syncope and collapse; N18.9 Chronic kidney disease, unspecified; Z79.891 Long term (current) use of opiate analgesic; I48.91 Unspecified atrial fibrillation; Z85.3 Personal history of malignant neoplasm of breast; Z85.51 Personal history of malignant neoplasm of bladder; Z85.53 Personal history of malignant neoplasm of renal pelvis; F17.210 Nicotine dependence, cigarettes, uncomplicated
CPT/HCPCS: 36415; 71045-TC-FY; 76775-TC; 80048; 80053; 82728; 83735; 84100; 84484; 85025; 85045; 85610; 85730; 93005; 93010; 96360; 96361; 99285-25; C9803-CS; G0378; U0003; U0005

== ENCOUNTER 2021-12-10 17:27 | Observation (INO) | payer OTHER ==
[2021-12-10 17:51] VITALS: BMI 29.9
[2021-12-10 18:22] LABS: BASO % 0.5 % (0-2.0); EOS % 0.1 % (0-4.5); HEMATOCRIT 30.1 % (32.4-45.2); LYMPH % 8.6 % (8-40); MCH 27.5 pg (25.7-33.7); MCHC 33.2 g/dl (32.0-36.0); MEAN CELL VOLUME 82.7 fl (80-96); MEAN PLT VOLUME 7.9 fl (7.5-11.1); MONO % 7.5 % (3.8-10.2); NEUT % 83.3 % (42.8-82.8); PLATELET COUNT 232 10^3/uL (134-434); RBC 3.64 M/mm3 (3.60-5.2); RDW 16.7 % (11.6-15.6); WHITE BLOOD COUNT 9.3 K/mm3 (4.0-10.0)
[2021-12-10 18:41] LABS: INR 2.36 (0.83-1.09); PROTHROMBIN TIME (PATIENT) 27.4 SEC (9.7-13.0)
[2021-12-10 18:44] LABS: ACTIVATED PTT 55.3 SECONDS (25.2-36.5)
[2021-12-10 18:50] LABS: ALBUMIN 2.5 g/dl (3.4-5.0); BLOOD UREA NITROGEN 12.8 mg/dL (7-18); CALCIUM 8.6 mg/dL (8.5-10.1)
[2021-12-10 18:53] LABS: CREATININE 1.8 mg/dL (0.55-1.3)
[2021-12-10 18:54] LABS: BILIRUBIN,TOTAL 0.7 mg/dL (0.2-1); TOT PROT 6.7 g/dl (6.4-8.2)
[2021-12-10 19:36] LABS: N-TERMINAL BNP 420.9 pg/ml (5-125)
[2021-12-11] MEDS ORDERED: FUROSEMIDE 40 MG/4 ML INJECTABLE VIAL IVPUSH ONE (07:50)
[2021-12-11] MEDS ORDERED: FUROSEMIDE 40 MG TABLET (FP) PO ONE (08:55)
[2021-12-11] MEDS ORDERED: risperiDONE 0.5 MG TABLET ONE (09:13)
[2021-12-11] MEDS ORDERED: CARVEDILOL 25 MG TABLET (FP) ONE (09:13)
[2021-12-11] MEDS ORDERED: APIXABAN 5 MG TABLET ONE (09:13)
[2021-12-11 09:42] LABS: HEMATOCRIT 30.8 % (32.4-45.2); MCHC 32.5 g/dl (32.0-36.0); MEAN CELL VOLUME 82.9 fl (80-96); MEAN PLT VOLUME 8.5 fl (7.5-11.1); PLATELET COUNT 237 10^3/uL (134-434); RBC 3.72 M/mm3 (3.60-5.2); RDW 16.7 % (11.6-15.6); WHITE BLOOD COUNT 7.7 K/mm3 (4.0-10.0)
[2021-12-11 09:52] LABS: ALBUMIN 2.4 g/dl (3.4-5.0); CALCIUM 8.7 mg/dL (8.5-10.1)
[2021-12-11 09:53] LABS: BLOOD UREA NITROGEN 13.1 mg/dL (7-18); MAGNESIUM 2.2 mg/dL (1.8-2.4)
[2021-12-11 09:56] LABS: CREATININE 1.7 mg/dL (0.55-1.3)
[2021-12-11 09:58] LABS: BILIRUBIN,TOTAL 0.5 mg/dL (0.2-1); TOT PROT 6.5 g/dl (6.4-8.2)
[2021-12-11] MEDS ORDERED: risperiDONE 0.5 MG TABLET PO SCH (10:00)
[2021-12-11] MEDS ORDERED: APIXABAN 5 MG TABLET PO SCH (10:00)
[2021-12-11] MEDS ORDERED: VENLAFAXINE HCL 75 MG E.R. CAPSULES PO SCH (10:00)
[2021-12-11] MEDS ORDERED: SACUBITRIL/VALSARTAN 49 MG-51 MG TABLET PO SCH (10:00)
[2021-12-11] MEDS ORDERED: CARVEDILOL 25 MG TABLET (FP) PO SCH (10:00)
[2021-12-11] MEDS ORDERED: SACUBITRIL/VALSARTAN 24 MG-26 MG TABLET PO SCH (10:00)
[2021-12-11 19:03] VITALS: BP 140/82; PULSE 66; RESP 14; TEMP 97.7
[2021-12-11] MEDS ORDERED: PATIENT'S OWN MEDICATION (NON-FORMULARY) (Mirabegron [Myrbetriq] 25 MG Tab.Er.24h) PO SCH (22:00)
[2021-12-11] MEDS ORDERED: VENLAFAXINE HCL 37.5 MG E.R. CAPSULE PO SCH (22:00)
== END 2021-12-11 20:08 | disposition home or self-care (01) ==
LOC: JER 17:27 → JERBED 19:47
PROVIDERS: ADMIT Internal Medicine; ATTEND Internal Medicine
DX: I47.1 Supraventricular tachycardia (principal); I48.91 Unspecified atrial fibrillation; I10 Essential (primary) hypertension; C65.9 Malignant neoplasm of unspecified renal pelvis; F11.90 Opioid use, unspecified, uncomplicated; E66.8 Other obesity; Z68.30 Body mass index [BMI] 30.0-30.9, adult; R05.9 Cough, unspecified; R09.3 Abnormal sputum; Z87.891 Personal history of nicotine dependence; Z85.3 Personal history of malignant neoplasm of breast; Z85.51 Personal history of malignant neoplasm of bladder; Z85.89 Personal history of malignant neoplasm of other organs and systems
CPT/HCPCS: 0241U-QW; 36415; 71045-TC-FY; 80053; 83735; 83880; 84100; 84443; 84484; 85025; 85027; 85610; 85730; 86850; 86900; 86901; 93005; 93010; 99285-25; G0378

== ENCOUNTER 2022-01-11 08:16 | Inpatient (IN) | payer OTHER ==
[2022-01-11] MEDS ORDERED: METOPROLOL TARTRATE 5 MG/5 ML VIAL IVPUSH ONE (09:01)
[2022-01-11] MEDS ORDERED: CARVEDILOL 25 MG TABLET (FP) PO ONE (09:02)
[2022-01-11] MEDS ORDERED: APIXABAN 5 MG TABLET PO ONE (09:02)
[2022-01-11] MEDS ORDERED: APIXABAN 5 MG TABLET ONE (09:29)
[2022-01-11] MEDS ORDERED: METOPROLOL TARTRATE 5 MG/5 ML VIAL ONE (09:29)
[2022-01-11] MEDS ORDERED: CARVEDILOL 25 MG TABLET (FP) ONE (09:30)
[2022-01-11 09:52] LABS: BASO % 1.1 % (0-2.0); EOS % 0.6 % (0-4.5); HEMOGLOBIN 10.1 GM/dL (10.7-15.3); LYMPH % 17.8 % (8-40); MCH 26.3 pg (25.7-33.7); MCHC 31.6 g/dl (32.0-36.0); MEAN CELL VOLUME 83.2 fl (80-96); MEAN PLT VOLUME 9.2 fl (7.5-11.1); MONO % 6.4 % (3.8-10.2); NEUT % 74.1 % (42.8-82.8); PLATELET COUNT 469 10^3/uL (134-434); RBC 3.85 M/mm3 (3.60-5.2); RDW 19.9 % (11.6-15.6); WHITE BLOOD COUNT 10.4 K/mm3 (4.0-10.0)
[2022-01-11 09:56] LABS: INR 2.22 (0.83-1.09); PROTHROMBIN TIME (PATIENT) 25.7 SEC (9.7-13.0)
[2022-01-11 09:59] LABS: ACTIVATED PTT 59.7 SECONDS (25.2-36.5)
[2022-01-11 10:08] LABS: CHLORIDE 107 mmol/L (98-107); SODIUM 142 mmol/L (136-145)
[2022-01-11 10:10] LABS: CALCIUM 9.8 mg/dL (8.5-10.1)
[2022-01-11 10:11] LABS: ALBUMIN 2.6 g/dl (3.4-5.0); ANION GAP 10 MMOL/L (8-16); BLOOD UREA NITROGEN 25.5 mg/dL (7-18); CO2 25 mmol/L (21-32); GLUCOSE,RANDOM 118 mg/dL (74-106); MAGNESIUM 2.2 mg/dL (1.8-2.4)
[2022-01-11 10:14] LABS: CREATININE 1.7 mg/dL (0.55-1.3); SGOT/AST 28 U/L (15-37); SGPT/ALT 20 U/L (13-61)
[2022-01-11 10:16] LABS: BILIRUBIN,TOTAL 0.6 mg/dL (0.2-1); TOT PROT 7.2 g/dl (6.4-8.2)
[2022-01-11 10:17] LABS: ALK PHOS 93 U/L (45-117)
[2022-01-11 11:21] LABS: N-TERMINAL BNP 5388.9 pg/ml (5-125)
[2022-01-11] MEDS ORDERED: CALCIUM GLUCONATE 10% - 1,000 MG/10 ML VIAL IVPB ONE (11:44)
[2022-01-11] MEDS ORDERED: CALCIUM GLUCONATE 10% - 1,000 MG/10 ML VIAL ONE (11:59)
[2022-01-11] MEDS ORDERED: ADENOSINE 6 MG/2 ML VIAL IVPUSH ONE ×4 (12:15→12:26)
[2022-01-11] MEDS ORDERED: DIGOXIN 0.5 MG/2 ML AMPUL IVPUSH ONE ×2 (12:34→14:17)
[2022-01-11] MEDS ORDERED: DIGOXIN 0.5 MG/2 ML AMPUL ONE ×2 (12:38→14:23)
[2022-01-11] MEDS ORDERED: AMIODARONE HCL INJECTION 150 MG in DEXTROSE 5%-WATER - 100 ML IVPB ONE (13:34)
[2022-01-11] MEDS ORDERED: AMIODARONE HCL 150 MG/3 ML VIAL IVPUSH ONE (13:34)
[2022-01-11] MEDS ORDERED: AMIODARONE IN DEXTROSE,ISO-OSM 150 MG/100 ML BAG ONE (13:38)
[2022-01-11] MEDS ORDERED: AMIODARONE IN DEXTROSE,ISO-OSM 360 MG/200 ML BAG IV SCH ×2 (13:45→14:30)
[2022-01-11] MEDS: AMIODARONE IN DEXTROSE,ISO-OSM 360 MG/200 ML BAG IV SCH (20:34)
[2022-01-11] MEDS ORDERED: PATIENT'S OWN MEDICATION (NON-FORMULARY) (Mirabegron [Myrbetriq] 25 MG Tab.Er.24h) PO SCH (22:00)
[2022-01-11] MEDS: MUPIROCIN 2% TOPICAL OINTMENT FOR DECOLONIZATION NS SCH (22:17)
[2022-01-11] MEDS: APIXABAN 5 MG TABLET PO SCH (22:17)
[2022-01-11] MEDS: CHLORHEXIDINE GLUCONATE 4% CLEANSER FOR DECOLONIZATION TP SCH (22:18)
[2022-01-11] MEDS: risperiDONE 0.5 MG TABLET PO SCH (22:25)
[2022-01-12] MEDS: risperiDONE 0.5 MG TABLET PO SCH ×3 (02:10→21:39)
[2022-01-12] MEDS: AMIODARONE IN DEXTROSE,ISO-OSM 360 MG/200 ML BAG IV SCH (06:05)
[2022-01-12] MEDS: APIXABAN 5 MG TABLET PO SCH ×2 (10:06→21:39)
[2022-01-12] MEDS: MUPIROCIN 2% TOPICAL OINTMENT FOR DECOLONIZATION NS SCH ×2 (10:06→21:39)
[2022-01-12 15:12] VITALS: BMI 31.6
[2022-01-12] MEDS ORDERED: BENZOCAINE/MENTH/CETYLPYRD CL 1 EACH LOZENGE MM PRN (15:18)
[2022-01-12] MEDS: CHLORHEXIDINE GLUCONATE 4% CLEANSER FOR DECOLONIZATION TP SCH (21:39)
[2022-01-12] MEDS: AMIODARONE HCL 200 MG TABLET PO SCH (21:39)
[2022-01-13] MEDS: AMIODARONE HCL 200 MG TABLET PO SCH ×2 (09:47→21:57)
[2022-01-13] MEDS: MUPIROCIN 2% TOPICAL OINTMENT FOR DECOLONIZATION NS SCH (09:47)
[2022-01-13] MEDS: risperiDONE 0.5 MG TABLET PO SCH ×2 (09:47→21:57)
[2022-01-13] MEDS: APIXABAN 5 MG TABLET PO SCH ×2 (09:47→21:57)
[2022-01-14] MEDS: APIXABAN 5 MG TABLET PO SCH ×2 (10:36→22:54)
[2022-01-14] MEDS: risperiDONE 0.5 MG TABLET PO SCH ×2 (10:37→22:54)
[2022-01-14] MEDS: AMIODARONE HCL 200 MG TABLET PO SCH ×2 (10:38→22:54)
[2022-01-14] MEDS ORDERED: CARVEDILOL 12.5 MG TABLET (FP) PO SCH (12:00)
[2022-01-14] MEDS: SACUBITRIL/VALSARTAN 49 MG-51 MG TABLET PO SCH ×2 (13:34→22:53)
[2022-01-15] MEDS: AMIODARONE HCL 200 MG TABLET PO SCH ×2 (09:20→21:32)
[2022-01-15] MEDS: risperiDONE 0.5 MG TABLET PO SCH ×2 (09:20→21:33)
[2022-01-15] MEDS: APIXABAN 5 MG TABLET PO SCH ×2 (09:20→21:33)
[2022-01-15] MEDS: SACUBITRIL/VALSARTAN 49 MG-51 MG TABLET PO SCH ×2 (09:21→21:33)
[2022-01-16] MEDS: risperiDONE 0.5 MG TABLET PO SCH (09:47)
[2022-01-16] MEDS: APIXABAN 5 MG TABLET PO SCH (09:47)
[2022-01-16] MEDS: SACUBITRIL/VALSARTAN 49 MG-51 MG TABLET PO SCH ×2 (09:48→09:54)
[2022-01-16] MEDS: AMIODARONE HCL 200 MG TABLET PO SCH (09:48)
[2022-01-16 18:25] VITALS: RESP 18
[2022-01-16 20:00] VITALS: BP 100/58; PULSE 68; TEMP 97.9
== END 2022-01-16 20:02 | DRG 309 ==
LOC: JER 08:16 → JERBED 14:02 → JICU 16:17 → J2W 01-12 20:31 → J4W 01-13 10:37
PROVIDERS: ADMIT Internal Medicine; ATTEND Internal Medicine
DX: I48.92 Unspecified atrial flutter (principal); C64.1 Malignant neoplasm of right kidney, except renal pelvis; I13.0 Hypertensive heart and chronic kidney disease with heart failure and stage 1 through stage 4 chronic kidney disease, or unspecified chronic kidney disease; I50.22 Chronic systolic (congestive) heart failure; N17.9 Acute kidney failure, unspecified; I48.91 Unspecified atrial fibrillation; Z79.01 Long term (current) use of anticoagulants; N18.9 Chronic kidney disease, unspecified; I25.10 Atherosclerotic heart disease of native coronary artery without angina pectoris; I42.8 Other cardiomyopathies; I34.0 Nonrheumatic mitral (valve) insufficiency; R63.4 Abnormal weight loss; R13.10 Dysphagia, unspecified; I47.1 Supraventricular tachycardia
CPT/HCPCS: 0241U-QW; 36415; 71045-TC-FY; 76937; 80053; 83735; 83880; 84443; 84484; 85025; 85610; 85730; 86850; 86900; 86901; 93005; 93010; 97116-GP; 99285-25; C9803-CS; U0003; U0005

== ENCOUNTER 2022-09-14 04:21 | Inpatient (IN) | payer OTHER ==
[2022-09-13 10:12] VITALS: BMI 26.2
[2022-09-14] MEDS ORDERED: PROPOFOL 20 ML ONE (13:04)
[2022-09-14] MEDS ORDERED: LIDOCAINE HCL/PF 2% SDV 5ML VIAL ONE (13:04)
[2022-09-14] MEDS ORDERED: DEXAMETHASONE SOD PHOSPHATE 4 MG/1 ML VIAL ONE (13:04)
[2022-09-14] MEDS ORDERED: ONDANSETRON 4 MG/2 ML VIAL ONE (13:04)
[2022-09-14] MEDS ORDERED: ceFAZolin SODIUM 1 GM VIAL IVPB ONE (13:20)
[2022-09-14] MEDS ORDERED: ceFAZolin SODIUM 1 GM VIAL ONE (13:22)
[2022-09-14] MEDS ORDERED: SEVOFLURANE 250 ML BTL ONE (13:52)
[2022-09-14] MEDS ORDERED: hydrALAZINE HCL 20 MG/ML VIAL ONE (14:01)
[2022-09-14] MEDS ORDERED: oxyCODONE HCL 5 MG TABLET PO PRN (14:03)
[2022-09-14] MEDS ORDERED: ONDANSETRON 4 MG/2 ML VIAL IVPUSH PRN (14:03)
[2022-09-14] MEDS ORDERED: PROMETHAZINE HCL 25 MG/1 ML VIAL IVPB PRN (14:03)
[2022-09-14] MEDS ORDERED: ACETAMINOPHEN 1000 MG/100 ML BAG IVPB PRN (14:04)
[2022-09-14] MEDS ORDERED: hydrALAZINE HCL 20 MG/ML VIAL IVPUSH ONE (14:04)
[2022-09-14] MEDS ORDERED: hydrALAZINE HCL 20 MG/ML VIAL IVPUSH PRN (14:04)
[2022-09-14] MEDS ORDERED: LACTATED RINGERS SOLUTION 1,000 ML IV SCH (14:15)
[2022-09-14] MEDS ORDERED: ACETAMINOPHEN INJECTION 100 ML IVPB ONE (15:18)
[2022-09-14 16:25] VITALS: RESP 16
[2022-09-14] MEDS ORDERED: oxyCODONE HCL 5 MG TABLET ONE (16:38)
[2022-09-14] MEDS ORDERED: oxyCODONE HCL 5 MG TABLET PO ONE (16:40)
[2022-09-14 18:50] VITALS: BP 117/94; PULSE 75; TEMP 98.2
== END 2022-09-14 18:00 | disposition home or self-care (01) | DRG 669 ==
LOC: J2C 04:21 → EDSTATUS 13:00
PROVIDERS: ADMIT Urology; ATTEND Urology
PROC: 0TBB8ZZ Excision of Bladder, Via Natural or Artificial Opening Endoscopic (ICD-10-PCS; principal; 2022-09-14 13:00)
DX: D49.4 Neoplasm of unspecified behavior of bladder (principal); I13.0 Hypertensive heart and chronic kidney disease with heart failure and stage 1 through stage 4 chronic kidney disease, or unspecified chronic kidney disease; I50.22 Chronic systolic (congestive) heart failure; N18.9 Chronic kidney disease, unspecified; I48.91 Unspecified atrial fibrillation; I25.10 Atherosclerotic heart disease of native coronary artery without angina pectoris
CPT/HCPCS: 88307-TC; 94760

== ENCOUNTER 2023-04-26 18:53 | Day surgery (SDC) | payer MEDICARE, OTHER ==
[2023-04-19 14:30] VITALS: BMI 28.3
[2023-04-26] MEDS: ceFAZolin SODIUM 1 GM VIAL IVPB ONE (12:50)
[2023-04-26] MEDS: oxyCODONE HCL 5 MG TABLET PO ONE (14:50)
[2023-04-26 17:13] VITALS: RESP 18
[~2023-04-26 18:53] MED LIST: ACETAMINOPHEN 1000 MG/100 ML BAG IVPB PRN; DEXAMETHASONE SOD PHOSPHATE 4 MG/1 ML VIAL ONE; LACTATED RINGERS SOLUTION 1,000 ML IV SCH; LIDOCAINE HCL/PF 2% SDV 5ML VIAL ONE; MIDAZOLAM HCL 2 MG/2 ML SINGLE DOSE VIAL ONE; ONDANSETRON 4 MG/2 ML VIAL IVPUSH PRN; ONDANSETRON 4 MG/2 ML VIAL ONE; PROMETHAZINE HCL 25 MG/1 ML VIAL IVPB PRN; PROPOFOL 20 ML ONE; SEVOFLURANE 250 ML BTL ONE; ceFAZolin SODIUM 1 GM VIAL ONE; oxyCODONE HCL 5 MG TABLET ONE; oxyCODONE HCL 5 MG TABLET PO PRN
[2023-04-26] MEDS: amLODIPine BESYLATE 5 MG TABLET (FP) PO SCH (21:38)
[2023-04-26] MEDS: oxyCODONE HCL 5 MG TABLET PO PRN (21:38)
[2023-04-26] MEDS: SACUBITRIL/VALSARTAN 49 MG-51 MG TABLET PO SCH (21:38)
[2023-04-26] MEDS: VENLAFAXINE HCL 75 MG E.R. CAPSULES PO SCH (21:38)
[2023-04-26] MEDS ORDERED: SACUBITRIL/VALSARTAN 49 MG-51 MG TABLET PO SCH (22:00)
[2023-04-26] MEDS ORDERED: VENLAFAXINE HCL 150 MG E.R. CAPSULE PO SCH (22:00)
[2023-04-26] MEDS ORDERED: amLODIPine BESYLATE 5 MG TABLET (FP) PO SCH (22:00)
[2023-04-27] MEDS: CEPHALEXIN MONOHYDRATE 500 MG CAPSULE (UD) PO SCH (05:21)
[2023-04-27 08:53] VITALS: BP 125/67; PULSE 54; TEMP 98
[2023-04-27] MEDS ORDERED: OXYBUTYNIN CHLORIDE 5 MG TABLET PO SCH (10:00)
[2023-04-27] MEDS ORDERED: FAMOTIDINE 20 MG TABLET PO SCH (10:00)
[2023-04-27] MEDS ORDERED: AMIODARONE HCL 200 MG TABLET PO SCH (10:00)
[2023-04-27] MEDS ORDERED: VENLAFAXINE HCL 37.5 MG E.R. CAPSULE PO SCH (10:00)
[2023-04-27] MEDS: SENNOSIDES 8.6MG TABLET (FP) PO SCH (10:11)
[2023-04-27] MEDS: FAMOTIDINE 20 MG TABLET PO SCH (10:11)
[2023-04-27] MEDS: AMIODARONE HCL 200 MG TABLET PO SCH (10:11)
[2023-04-27] MEDS: OXYBUTYNIN CHLORIDE 5 MG TABLET PO SCH (10:12)
[2023-04-27] MEDS: VENLAFAXINE HCL 37.5 MG E.R. CAPSULE PO SCH (10:12)
[2023-04-27] MEDS: ACETAMINOPHEN 325 MG TABLET (FP) PO ONE (10:15)
[2023-04-27] MEDS: ACETAMINOPHEN 500 MG TABLET (FP) PO ONE (10:15)
== END 2023-04-27 15:00 | disposition home or self-care (01) ==
LOC: JASUSAT 18:53 → SUATTDRO 18:53 → J6S 18:54 → JASUSAT 04-27 15:00
PROVIDERS: ATTEND Internal Medicine
PROC: 0TBB8ZZ Excision of Bladder, Via Natural or Artificial Opening Endoscopic (ICD-10-PCS; principal; 2023-04-26 13:00)
DX: C67.9 Malignant neoplasm of bladder, unspecified (principal)
CPT/HCPCS: 88307-TC; 94760; 97116-GP; 97161-GP

== ENCOUNTER 2023-07-23 10:35 | Inpatient (IN) | payer MEDICARE, OTHER ==
[2023-07-23] MEDS ORDERED: PIPERACILLIN/TAZOB 2.25 GM 2.25 GM/50 ML BAG IVPB ONE (11:46)
[2023-07-23 11:48] LABS: BASO % 0.3 % (0-2.0); EOS % 0.5 % (0-4.5); HEMATOCRIT 26.6 % (32.4-45.2); HEMOGLOBIN 8.5 GM/dL (10.7-15.3); LYMPH % 6.1 % (8-40); MCH 26.2 pg (25.7-33.7); MCHC 31.9 g/dl (32.0-36.0); MEAN PLT VOLUME 8.7 fl (7.5-11.1); MONO % 10.9 % (3.8-10.2); NEUT % 82.2 % (42.8-82.8); PLATELET COUNT 321 10^3/uL (134-434); RBC 3.25 M/mm3 (3.60-5.2); RDW 17.3 % (11.6-15.6); VENOUS BASE EXCESS 2.3 mmol/L (-2-2); VENOUS O2 SATURATION 34.6 % (70-80); VENOUS PCO2 46.4 mmHg (38-52); VENOUS PH 7.392 (7.310-7.410); WHITE BLOOD COUNT 14.4 K/mm3 (4.0-10.0)
[2023-07-23] MEDS: PIPERACILLIN/TAZOB 2.25 GM 2.25 GM in DEXTROSE 5%-WATER - 50 ML IVPB ONE (11:58)
[2023-07-23] MEDS: SODIUM CHLORIDE 0.9% 500 ML INFUS.BAG IV ONE ×2 (11:59→14:26)
[2023-07-23 12:13] LABS: POTASSIUM 4.2 mmol/L (3.5-5.1)
[2023-07-23 12:15] LABS: CALCIUM 9.9 mg/dL (8.5-10.1); MAGNESIUM 2.7 mg/dL (1.8-2.4)
[2023-07-23 12:16] LABS: BLOOD UREA NITROGEN 29.1 mg/dL (7-18)
[2023-07-23 12:18] LABS: PHOSPHOROUS 2.8 mg/dL (2.5-4.9)
[2023-07-23 12:20] LABS: TOT PROT 6.7 g/dl (6.4-8.2)
[2023-07-23 12:24] LABS: N-TERMINAL BNP 317.8 pg/ml (5-125)
[2023-07-23 12:26] LABS: BILIRUBIN,TOTAL 0.5 mg/dL (0.2-1); LACTIC ACID 2.6 mmol/L (0.4-2.0)
[2023-07-23 12:31] LABS: ALBUMIN 2.4 g/dl (3.4-5.0)
[2023-07-23 14:24] LABS: EPI CELLS >36 /uL (0-25.1); HYALINE CASTS 422 /uL (0-3.1); URINE APPEARANCE TURBID; URINE BILIRUBIN 2+ (NEGATIVE); URINE COLOR RED; URINE GLUCOSE (UA) NEGATIVE (NEGATIVE); URINE KETONE NEGATIVE (NEGATIVE); URINE LEUK ESTERASE 2+ (NEGATIVE); URINE NITRITE POSITIVE (NEGATIVE); URINE PROTEIN 2+ (NEGATIVE); URINE RBC 35900 /uL (0-23.9); URINE WBC 341 /uL (0-25.8)
[2023-07-23 14:29] LABS: URINE BACTERIA 2.1 /uL (0-1359)
[2023-07-23] MEDS: APIXABAN 5 MG TABLET PO SCH (21:31)
[2023-07-23] MEDS: SACUBITRIL/VALSARTAN 24 MG-26 MG TABLET PO SCH (21:32)
[2023-07-23] MEDS: CARVEDILOL 12.5 MG TABLET (FP) PO SCH (21:32)
[2023-07-24 08:26] LABS: CHLORIDE 107 mmol/L (98-107); POTASSIUM 3.8 mmol/L (3.5-5.1); SODIUM 141 mmol/L (136-145)
[2023-07-24 08:29] LABS: ALBUMIN 2.1 g/dl (3.4-5.0); ANION GAP 7 mmol/L (4-13); BLOOD UREA NITROGEN 21.7 mg/dL (7-18); CALCIUM 9.2 mg/dL (8.5-10.1); CO2 26 mmol/L (21-32); GLUCOSE,RANDOM 90 mg/dL (74-106); MAGNESIUM 2.5 mg/dL (1.8-2.4)
[2023-07-24 08:32] LABS: CREATININE 1.4 mg/dL (0.55-1.3); PHOSPHOROUS 2.8 mg/dL (2.5-4.9); SGOT/AST 57 U/L (15-37); SGPT/ALT 27 U/L (13-61)
[2023-07-24 08:33] LABS: BASO % 0.1 % (0-2.0); EOS % 0.4 % (0-4.5); HEMATOCRIT 24.8 % (32.4-45.2); HEMOGLOBIN 7.9 GM/dL (10.7-15.3); MCH 26.4 pg (25.7-33.7); MCHC 31.9 g/dl (32.0-36.0); MEAN CELL VOLUME 82.8 fl (80-96); MONO % 11.5 % (3.8-10.2); PLATELET COUNT 298 10^3/uL (134-434); RBC 2.99 M/mm3 (3.60-5.2); RDW 16.7 % (11.6-15.6); WHITE BLOOD COUNT 16.6 K/mm3 (4.0-10.0)
[2023-07-24 08:34] LABS: BILIRUBIN,TOTAL 0.6 mg/dL (0.2-1)
[2023-07-24 08:35] LABS: ALK PHOS 95 U/L (45-117)
[2023-07-24] MEDS: CEFTRIAXONE 1 GM in DEXTROSE 5%-WATER - 50 ML IVPB SCH (10:01)
[2023-07-24] MEDS: VENLAFAXINE HCL 75 MG E.R. CAPSULES PO SCH (10:01)
[2023-07-24] MEDS: AMIODARONE HCL 200 MG TABLET PO SCH (10:01)
[2023-07-24] MEDS: OXYBUTYNIN CHLORIDE 5 MG TABLET PO SCH (10:01)
[2023-07-24] MEDS: FAMOTIDINE 10 MG TABLET PO SCH (10:02)
[2023-07-24] MEDS ORDERED: VENLAFAXINE HCL 37.5 MG E.R. CAPSULE PO SCH (15:25)
[2023-07-24] MEDS: FLUTICASONE/UMECLIDIN/VILANTER(100-62.5-25 TRELEGY ELLIPTA) INAHLER IH SCH ×2 (15:36→16:54)
[2023-07-24 19:44] LABS: RETICULOCYTES 1.85 % (0.5-1.5)
[2023-07-25] MEDS: FAMOTIDINE 20 MG TABLET PO SCH (09:54)
[2023-07-25] MEDS: VENLAFAXINE HCL 75 MG E.R. CAPSULES PO SCH (09:55)
[2023-07-25 10:03] LABS: HEMATOCRIT 24.5 % (32.4-45.2); HEMOGLOBIN 7.8 GM/dL (10.7-15.3); MCH 26.2 pg (25.7-33.7); MEAN CELL VOLUME 81.9 fl (80-96); MEAN PLT VOLUME 9.2 fl (7.5-11.1); PLATELET COUNT 293 10^3/uL (134-434); RBC 2.99 M/mm3 (3.60-5.2); RDW 17.2 % (11.6-15.6); WHITE BLOOD COUNT 15.4 K/mm3 (4.0-10.0)
[2023-07-25 10:09] LABS: POTASSIUM 3.8 mmol/L (3.5-5.1)
[2023-07-25 10:16] LABS: ALBUMIN 2.1 g/dl (3.4-5.0); BLOOD UREA NITROGEN 18.7 mg/dL (7-18)
[2023-07-25 10:17] LABS: CREATININE 1.4 mg/dL (0.55-1.3)
[2023-07-25 10:18] LABS: CALCIUM 9.6 mg/dL (8.5-10.1); TOT PROT 5.8 g/dl (6.4-8.2)
[2023-07-25 10:19] LABS: BILIRUBIN,TOTAL 0.6 mg/dL (0.2-1)
[2023-07-25] MEDS: VENLAFAXINE HCL 37.5 MG E.R. CAPSULE PO SCH (16:00)
[2023-07-26 08:14] LABS: POTASSIUM 4.5 mmol/L (3.5-5.1)
[2023-07-26 08:20] LABS: ALBUMIN 2.1 g/dl (3.4-5.0); BLOOD UREA NITROGEN 26.3 mg/dL (7-18); PROTHROMBIN TIME (PATIENT) 22.1 SEC (9.7-13.0)
[2023-07-26 08:22] LABS: CREATININE 1.7 mg/dL (0.55-1.3)
[2023-07-26 08:23] LABS: TOT PROT 5.8 g/dl (6.4-8.2)
[2023-07-26 08:24] LABS: BILIRUBIN,TOTAL 0.6 mg/dL (0.2-1)
[2023-07-26 08:28] LABS: BASO % 0.3 % (0-2.0); EOS % 0.3 % (0-4.5); HEMATOCRIT 21.7 % (32.4-45.2); HEMOGLOBIN 7.1 GM/dL (10.7-15.3); LYMPH % 7.3 % (8-40); MCH 26.5 pg (25.7-33.7); MCHC 32.7 g/dl (32.0-36.0); MEAN CELL VOLUME 80.9 fl (80-96); MEAN PLT VOLUME 9.2 fl (7.5-11.1); MONO % 9.2 % (3.8-10.2); NEUT % 82.9 % (42.8-82.8); PLATELET COUNT 294 10^3/uL (134-434); RBC 2.68 M/mm3 (3.60-5.2); RDW 17.1 % (11.6-15.6); WHITE BLOOD COUNT 16.9 K/mm3 (4.0-10.0)
[2023-07-26] MEDS ORDERED: BISACODYL 10 MG SUPP.RECT PR PRN (11:39)
[2023-07-26] MEDS: ACETAMINOPHEN 1000 MG/100 ML BAG IVPB ONE (12:35)
[2023-07-26] MEDS: DOCUSATE SODIUM 100 MG CAPSULE (FP) PO SCH (12:35)
[2023-07-26] MEDS: POLYETHYLENE GLYCOL (HEALTHYLAX) 3350 17 GM PACKET PO SCH (12:35)
[2023-07-26] MEDS: FUROSEMIDE 40 MG/4 ML INJECTABLE VIAL IVPUSH PRN (18:26)
[2023-07-26 18:27] LABS: HEMATOCRIT 25.1 % (32.4-45.2); MCH 26.7 pg (25.7-33.7); MCHC 31.9 g/dl (32.0-36.0); MEAN CELL VOLUME 83.8 fl (80-96); MEAN PLT VOLUME 9.2 fl (7.5-11.1); PLATELET COUNT 305 10^3/uL (134-434); RDW 17.3 % (11.6-15.6); WHITE BLOOD COUNT 18.1 K/mm3 (4.0-10.0)
[2023-07-26] MEDS: oxyCODONE HCL 5 MG TABLET PO PRN (18:57)
[2023-07-27] MEDS: ACETAMINOPHEN 325 MG TABLET (FP) PO PRN (10:22)
[2023-07-27] MEDS: ONDANSETRON 4 MG/2 ML VIAL IVPB PRN (11:32)
[2023-07-27] MEDS: FAMOTIDINE 20 MG/50 ML IVPB 20 MG/50 ML MG IVPB ONE (12:51)
[2023-07-27 13:08] LABS: MCH 26.5 pg (25.7-33.7); MCHC 32.2 g/dl (32.0-36.0); MEAN CELL VOLUME 82.2 fl (80-96); MEAN PLT VOLUME 8.8 fl (7.5-11.1); PLATELET COUNT 316 10^3/uL (134-434); RBC 3.04 M/mm3 (3.60-5.2); RDW 16.8 % (11.6-15.6); WHITE BLOOD COUNT 19.3 K/mm3 (4.0-10.0)
[2023-07-27 13:14] LABS: INR 1.73 (0.83-1.09); PROTHROMBIN TIME (PATIENT) 19.2 SEC (9.7-13.0)
[2023-07-27 13:17] LABS: ACTIVATED PTT 39.8 SECONDS (25.2-36.5)
[2023-07-27 13:32] LABS: POTASSIUM 4.5 mmol/L (3.5-5.1)
[2023-07-27 13:35] LABS: CALCIUM 8.9 mg/dL (8.5-10.1)
[2023-07-27 13:36] LABS: ALBUMIN 2.2 g/dl (3.4-5.0)
[2023-07-27 13:39] LABS: CREATININE 2.2 mg/dL (0.55-1.3)
[2023-07-27 13:41] LABS: BILIRUBIN,TOTAL 0.5 mg/dL (0.2-1)
[2023-07-27] MEDS: SODIUM CHLORIDE 500 ML IV SCH (19:00)
[2023-07-27] MEDS: VENLAFAXINE HCL 37.5 MG E.R. CAPSULE PO SCH (19:03)
[2023-07-28] MEDS: CARVEDILOL 12.5 MG TABLET (FP) PO SCH (09:11)
[2023-07-28] MEDS: SACUBITRIL/VALSARTAN 24 MG-26 MG TABLET PO SCH (09:17)
[2023-07-28 09:39] LABS: HEMATOCRIT 24.8 % (32.4-45.2); HEMOGLOBIN 7.7 GM/dL (10.7-15.3); MCH 26.5 pg (25.7-33.7); MEAN CELL VOLUME 85.3 fl (80-96); MEAN PLT VOLUME 9.3 fl (7.5-11.1); PLATELET COUNT 288 10^3/uL (134-434); RBC 2.91 M/mm3 (3.60-5.2); RDW 17.6 % (11.6-15.6); WHITE BLOOD COUNT 20.4 K/mm3 (4.0-10.0)
[2023-07-28 09:45] LABS: POTASSIUM 4.5 mmol/L (3.5-5.1)
[2023-07-28 09:47] LABS: INR 1.81 (0.83-1.09); PROTHROMBIN TIME (PATIENT) 20.1 SEC (9.7-13.0)
[2023-07-28 10:09] LABS: CALCIUM 8.8 mg/dL (8.5-10.1)
[2023-07-28 10:10] LABS: BLOOD UREA NITROGEN 40.1 mg/dL (7-18); MAGNESIUM 2.6 mg/dL (1.8-2.4)
[2023-07-28 10:11] LABS: PHOSPHOROUS 3.3 mg/dL (2.5-4.9)
[2023-07-28 10:12] LABS: TOT PROT 5.9 g/dl (6.4-8.2)
[2023-07-28 10:13] LABS: BILIRUBIN,TOTAL 0.5 mg/dL (0.2-1); CREATININE 2.4 mg/dL (0.55-1.3)
[2023-07-28] MEDS: SODIUM CHLORIDE 1,000 ML IV SCH ×2 (12:59→21:15)
[2023-07-28] MEDS: SODIUM CHLORIDE 500 ML IV STA (16:36)
[2023-07-28] MEDS: PIPERACILLIN/TAZOB 2.25 GM 2.25 GM in DEXTROSE 5%-WATER - 50 ML IVPB ONE (17:09)
[2023-07-28] MEDS ORDERED: PIPERACILLIN/TAZOB 2.25 GM 2.25 GM in DEXTROSE 5%-WATER - 50 ML IVPB SCH (18:00)
[2023-07-28] MEDS ORDERED: oxyCODONE HCL 5 MG TABLET PO PRN (18:36)
[2023-07-28] MEDS ORDERED: ACETAMINOPHEN 325 MG TABLET (FP) PO PRN (18:36)
[2023-07-28] MEDS ORDERED: ONDANSETRON 4 MG/2 ML VIAL IVPB PRN (18:36)
[2023-07-28] MEDS: DOCUSATE SODIUM 100 MG CAPSULE (FP) PO SCH (21:20)
[2023-07-29] MEDS ORDERED: PIPERACILLIN/TAZOB 2.25 GM 2.25 GM in DEXTROSE 5%-WATER - 50 ML IVPB SCH (02:00)
[2023-07-29] MEDS: PIPERACILLIN/TAZOB 2.25 GM 2.25 GM in DEXTROSE 5%-WATER - 50 ML IVPB SCH (03:14)
[2023-07-29 07:55] LABS: HEMATOCRIT 25.4 % (32.4-45.2); HEMOGLOBIN 7.9 GM/dL (10.7-15.3); MCH 26.6 pg (25.7-33.7); MCHC 31.2 g/dl (32.0-36.0); MEAN CELL VOLUME 85.2 fl (80-96); PLATELET COUNT 310 10^3/uL (134-434); RBC 2.97 M/mm3 (3.60-5.2); RDW 17.5 % (11.6-15.6); WHITE BLOOD COUNT 20.6 K/mm3 (4.0-10.0)
[2023-07-29 08:05] LABS: POTASSIUM 4.2 mmol/L (3.5-5.1)
[2023-07-29 08:11] LABS: CALCIUM 8.8 mg/dL (8.5-10.1)
[2023-07-29 08:12] LABS: BLOOD UREA NITROGEN 41.4 mg/dL (7-18)
[2023-07-29 08:14] LABS: CREATININE 2.2 mg/dL (0.55-1.3)
[2023-07-29 08:16] LABS: BILIRUBIN,TOTAL 0.5 mg/dL (0.2-1)
[2023-07-29 08:19] LABS: TOT PROT 5.8 g/dl (6.4-8.2)
[2023-07-29] MEDS: VENLAFAXINE HCL 75 MG E.R. CAPSULES PO SCH (09:43)
[2023-07-29] MEDS: FAMOTIDINE 10 MG TABLET PO SCH (09:43)
[2023-07-29] MEDS: OXYBUTYNIN CHLORIDE 5 MG TABLET PO SCH (09:43)
[2023-07-29] MEDS: AMIODARONE HCL 200 MG TABLET PO SCH (09:43)
[2023-07-29] MEDS: POLYETHYLENE GLYCOL (HEALTHYLAX) 3350 17 GM PACKET PO SCH ×2 (09:44→21:30)
[2023-07-29] MEDS: CARVEDILOL 6.25 MG TABLET (FP) PO SCH (11:08)
[2023-07-29 14:38] VITALS: BMI 25.4
[2023-07-29] MEDS: VENLAFAXINE HCL 37.5 MG E.R. CAPSULE PO SCH (14:53)
[2023-07-29] MEDS: FLUTICASONE/UMECLIDIN/VILANTER(100-62.5-25 TRELEGY ELLIPTA) INAHLER IH SCH (14:53)
[2023-07-29] MEDS: oxyCODONE HCL 5 MG TABLET PO SCH (15:41)
[2023-07-29] MEDS: ACETAMINOPHEN 325 MG TABLET (FP) PO SCH (15:44)
[2023-07-30 07:48] LABS: POTASSIUM 4.3 mmol/L (3.5-5.1)
[2023-07-30 07:51] LABS: ALBUMIN 2.1 g/dl (3.4-5.0)
[2023-07-30 07:54] LABS: CREATININE 2.3 mg/dL (0.55-1.3)
[2023-07-30 07:56] LABS: BILIRUBIN,TOTAL 0.5 mg/dL (0.2-1); TOT PROT 5.9 g/dl (6.4-8.2)
[2023-07-30 08:00] LABS: BASO % 0.1 % (0-2.0); EOS % 0.7 % (0-4.5); HEMATOCRIT 22.4 % (32.4-45.2); LYMPH % 5.5 % (8-40); MCH 26.4 pg (25.7-33.7); MEAN PLT VOLUME 9.2 fl (7.5-11.1); MONO % 8.4 % (3.8-10.2); NEUT % 85.3 % (42.8-82.8); PLATELET COUNT 353 10^3/uL (134-434); RBC 2.64 M/mm3 (3.60-5.2); RDW 18.2 % (11.6-15.6); WHITE BLOOD COUNT 18.1 K/mm3 (4.0-10.0)
[2023-07-30] MEDS ORDERED: oxyCODONE HCL 5 MG TABLET PO PRN (13:46)
[2023-07-30 17:50] LABS: HEMATOCRIT 28.9 % (32.4-45.2); HEMOGLOBIN 9.2 GM/dL (10.7-15.3); MCH 27.3 pg (25.7-33.7); MCHC 31.8 g/dl (32.0-36.0); MEAN CELL VOLUME 85.7 fl (80-96); MEAN PLT VOLUME 8.8 fl (7.5-11.1); PLATELET COUNT 299 10^3/uL (134-434); RBC 3.37 M/mm3 (3.60-5.2); RDW 17.7 % (11.6-15.6); WHITE BLOOD COUNT 19.9 K/mm3 (4.0-10.0)
[2023-07-30 18:07] LABS: METHYLMALONIC ACID- 689 nmol/L (0-378)
[2023-07-30] MEDS: FUROSEMIDE 40 MG/4 ML INJECTABLE VIAL IVPUSH PRN (19:55)
[2023-07-31 08:05] LABS: HEMATOCRIT 32.2 % (32.4-45.2); HEMOGLOBIN 10.2 GM/dL (10.7-15.3); MCH 26.9 pg (25.7-33.7); MCHC 31.7 g/dl (32.0-36.0); MEAN CELL VOLUME 84.9 fl (80-96); MEAN PLT VOLUME 8.7 fl (7.5-11.1); PLATELET COUNT 294 10^3/uL (134-434); RBC 3.79 M/mm3 (3.60-5.2); RDW 17.3 % (11.6-15.6); WHITE BLOOD COUNT 16.9 K/mm3 (4.0-10.0)
[2023-07-31 08:20] LABS: POTASSIUM 4.2 mmol/L (3.5-5.1)
[2023-07-31 08:36] LABS: BLOOD UREA NITROGEN 51.2 mg/dL (7-18); CALCIUM 9.6 mg/dL (8.5-10.1)
[2023-07-31 08:38] LABS: CREATININE 2.6 mg/dL (0.55-1.3)
[2023-07-31 08:40] LABS: TOT PROT 5.9 g/dl (6.4-8.2)
[2023-07-31] MEDS: BISACODYL 10 MG SUPP.RECT PR PRN (18:29)
[2023-07-31] MEDS: DEXTROSE 5%-LACTATED RINGERS 1,000 ML IV SCH (19:59)
[2023-08-01 07:21] LABS: HEMATOCRIT 30.5 % (32.4-45.2); HEMOGLOBIN 9.8 GM/dL (10.7-15.3); MCH 26.9 pg (25.7-33.7); MCHC 32.1 g/dl (32.0-36.0); MEAN CELL VOLUME 83.9 fl (80-96); MEAN PLT VOLUME 8.4 fl (7.5-11.1); PLATELET COUNT 280 10^3/uL (134-434); RBC 3.63 M/mm3 (3.60-5.2); RDW 17.8 % (11.6-15.6); WHITE BLOOD COUNT 17.3 K/mm3 (4.0-10.0)
[2023-08-01 07:41] LABS: POTASSIUM 4.4 mmol/L (3.5-5.1)
[2023-08-01 07:49] LABS: BLOOD UREA NITROGEN 49.4 mg/dL (7-18); CALCIUM 9.6 mg/dL (8.5-10.1)
[2023-08-01 07:50] LABS: ALBUMIN 1.8 g/dl (3.4-5.0)
[2023-08-01 07:54] LABS: BILIRUBIN,TOTAL 0.9 mg/dL (0.2-1); TOT PROT 5.5 g/dl (6.4-8.2)
[2023-08-01] MEDS: DEXTROSE 5%-LACTATED RINGERS 1,000 ML IV SCH (12:36)
[2023-08-01] MEDS: PIPERACILLIN/TAZOB 2.25 GM 2.25 GM in DEXTROSE 5%-WATER - 50 ML IVPB SCH (17:52)
[2023-08-01] MEDS ORDERED: PIPERACILLIN/TAZOB 2.25 GM 2.25 GM in DEXTROSE 5%-WATER - 50 ML IVPB SCH (18:00)
[2023-08-02 07:00] LABS: HEMATOCRIT 31.7 % (32.4-45.2); HEMOGLOBIN 10.3 GM/dL (10.7-15.3); MCH 27.3 pg (25.7-33.7); MCHC 32.5 g/dl (32.0-36.0); MEAN CELL VOLUME 83.8 fl (80-96); MEAN PLT VOLUME 8.1 fl (7.5-11.1); PLATELET COUNT 285 10^3/uL (134-434); RBC 3.78 M/mm3 (3.60-5.2); RDW 18.1 % (11.6-15.6); WHITE BLOOD COUNT 22.4 K/mm3 (4.0-10.0)
[2023-08-02 07:22] LABS: POTASSIUM 3.8 mmol/L (3.5-5.1)
[2023-08-02 07:27] LABS: ALBUMIN 1.8 g/dl (3.4-5.0); BLOOD UREA NITROGEN 46.1 mg/dL (7-18); CALCIUM 10.4 mg/dL (8.5-10.1)
[2023-08-02 07:30] LABS: CREATININE 1.8 mg/dL (0.55-1.3)
[2023-08-02 07:32] LABS: BILIRUBIN,TOTAL 0.9 mg/dL (0.2-1); TOT PROT 5.5 g/dl (6.4-8.2)
[2023-08-02 17:47] LABS: BODY FLUID MACROPHAGES 24 %; BODY FLUID MESOTHELIAL 2 %
[2023-08-02 19:14] LABS: EPI CELLS >36 /uL (0-25.1); HYALINE CASTS 1 /uL (0-3.1); URINE APPEARANCE TURBID; URINE BILIRUBIN 1+ (NEGATIVE); URINE COLOR RED; URINE GLUCOSE (UA) NEGATIVE (NEGATIVE); URINE KETONE NEGATIVE (NEGATIVE); URINE LEUK ESTERASE 2+ (NEGATIVE); URINE NITRITE NEGATIVE (NEGATIVE); URINE PROTEIN 2+ (NEGATIVE); URINE WBC 369 /uL (0-25.8)
[2023-08-02 20:03] LABS: URINE BACTERIA 64.6 /uL (0-1359); URINE RBC 32436.3 /uL (0-23.9); YEAST NONE SEEN (NEGATIVE)
[2023-08-03 07:16] LABS: HEMATOCRIT 31.5 % (32.4-45.2); HEMOGLOBIN 9.9 GM/dL (10.7-15.3); MCH 26.7 pg (25.7-33.7); MCHC 31.3 g/dl (32.0-36.0); MEAN CELL VOLUME 85.3 fl (80-96); MEAN PLT VOLUME 8.9 fl (7.5-11.1); PLATELET COUNT 295 10^3/uL (134-434); RBC 3.69 M/mm3 (3.60-5.2); RDW 18.1 % (11.6-15.6); WHITE BLOOD COUNT 20.6 K/mm3 (4.0-10.0)
[2023-08-03 07:37] LABS: POTASSIUM 4.4 mmol/L (3.5-5.1)
[2023-08-03 07:39] LABS: ALBUMIN 1.8 g/dl (3.4-5.0); BLOOD UREA NITROGEN 42.8 mg/dL (7-18); CALCIUM 10.8 mg/dL (8.5-10.1)
[2023-08-03 07:43] LABS: CREATININE 1.7 mg/dL (0.55-1.3)
[2023-08-03 07:45] LABS: BILIRUBIN,TOTAL 1.1 mg/dL (0.2-1); TOT PROT 5.8 g/dl (6.4-8.2)
[2023-08-03] MEDS ORDERED: LACTATED RINGERS SOLUTION 1,000 ML/1,000 ML INFUS.BAG IV SCH (09:45)
[2023-08-03] MEDS ORDERED: AMINO ACIDS 4.25%/D5W 1,000 ML IV SCH (09:45)
[2023-08-03] MEDS ORDERED: MIDAZOLAM HCL 2 MG/2 ML SINGLE DOSE VIAL ONE (11:12)
[2023-08-03] MEDS ORDERED: FENTANYL CITRATE/PF 50 MCG/ML VIAL ONE (11:12)
[2023-08-03] MEDS: SODIUM CHLORIDE 500 ML IV ONE (11:55)
[2023-08-03] MEDS: FENTANYL CITRATE/PF 50 MCG/ML VIAL IVPUSH ONE (12:05)
[2023-08-03] MEDS: AMINO ACIDS 4.25%/D5W 1,000 ML IV SCH (12:56)
[2023-08-03] MEDS: SODIUM CHLORIDE 1,000 ML IV SCH (17:14)
[2023-08-04 07:34] LABS: HEMATOCRIT 30.7 % (32.4-45.2); HEMOGLOBIN 9.8 GM/dL (10.7-15.3); MCHC 31.9 g/dl (32.0-36.0); MEAN CELL VOLUME 84.5 fl (80-96); MEAN PLT VOLUME 9.1 fl (7.5-11.1); PLATELET COUNT 250 10^3/uL (134-434); RBC 3.63 M/mm3 (3.60-5.2); RDW 18.7 % (11.6-15.6); WHITE BLOOD COUNT 17.8 K/mm3 (4.0-10.0)
[2023-08-04 07:49] LABS: POTASSIUM 3.9 mmol/L (3.5-5.1)
[2023-08-04 07:52] LABS: ALBUMIN 1.7 g/dl (3.4-5.0); BLOOD UREA NITROGEN 46.4 mg/dL (7-18); CALCIUM 10.9 mg/dL (8.5-10.1); MAGNESIUM 2.4 mg/dL (1.8-2.4)
[2023-08-04 07:55] LABS: CREATININE 1.8 mg/dL (0.55-1.3); PHOSPHOROUS 2.7 mg/dL (2.5-4.9); TOT PROT 5.2 g/dl (6.4-8.2)
[2023-08-04 18:09] LABS: BODY FLUID ALBUMIN 1.9 g/dL (Not Estab.)
[2023-08-05 10:13] LABS: HEMATOCRIT 29.3 % (32.4-45.2); HEMOGLOBIN 9.3 GM/dL (10.7-15.3); MCHC 31.9 g/dl (32.0-36.0); MEAN CELL VOLUME 84.7 fl (80-96); MEAN PLT VOLUME 8.8 fl (7.5-11.1); PLATELET COUNT 210 10^3/uL (134-434); RBC 3.45 M/mm3 (3.60-5.2); RDW 18.5 % (11.6-15.6); WHITE BLOOD COUNT 21.6 K/mm3 (4.0-10.0)
[2023-08-05 10:14] LABS: HEMATOCRIT 29.5 % (32.4-45.2); HEMOGLOBIN 9.4 GM/dL (10.7-15.3); MCHC 31.9 g/dl (32.0-36.0); MEAN CELL VOLUME 84.4 fl (80-96); PLATELET COUNT 214 10^3/uL (134-434); RDW 18.8 % (11.6-15.6); WHITE BLOOD COUNT 21.8 K/mm3 (4.0-10.0)
[2023-08-05 10:41] LABS: POTASSIUM 4.2 mmol/L (3.5-5.1)
[2023-08-05 10:49] LABS: CALCIUM 10.4 mg/dL (8.5-10.1)
[2023-08-05 10:50] LABS: ALBUMIN 1.4 g/dl (3.4-5.0); MAGNESIUM 2.3 mg/dL (1.8-2.4)
[2023-08-05 10:53] LABS: CREATININE 1.7 mg/dL (0.55-1.3); PHOSPHOROUS 2.7 mg/dL (2.5-4.9)
[2023-08-05 10:54] LABS: BILIRUBIN,TOTAL 1.7 mg/dL (0.2-1); TOT PROT 5.1 g/dl (6.4-8.2)
[2023-08-05 11:11] LABS: ANISOCYTOSIS 0; HELMET CELLS 0; HOWELL-JOLLY BODIES 0; MACROCYTOSIS 0; OVALOCYTE 0; ROULEAU 0; SICKELED CELLS 0; TARGET CELLS 0; TEAR DROP CELLS 0; TOXIC GRANULATION 0
[2023-08-05 11:39] LABS: BILIRUBIN,DIRECT 0.8 mg/dL (0.0-0.2)
[2023-08-05] MEDS ORDERED: CALCITONIN - SALMON SYNTHETIC 400 UNIT/2 ML VIAL IM SCH (11:45)
[2023-08-05] MEDS: CALCITONIN - SALMON SYNTHETIC 400 UNIT/2 ML VIAL IM SCH (12:18)
[2023-08-05] MEDS: SODIUM CHLORIDE 250 ML IV STA (14:22)
[2023-08-05] MEDS: SODIUM CHLORIDE 1,000 ML IV SCH (14:22)
[2023-08-05] MEDS: FUROSEMIDE 40 MG/4 ML INJECTABLE VIAL IVPUSH ONE (17:32)
[2023-08-06 07:55] LABS: HEMATOCRIT 25.2 % (32.4-45.2); HEMOGLOBIN 7.9 GM/dL (10.7-15.3); MCH 26.9 pg (25.7-33.7); MCHC 31.4 g/dl (32.0-36.0); MEAN CELL VOLUME 85.5 fl (80-96); MEAN PLT VOLUME 9.4 fl (7.5-11.1); PLATELET COUNT 199 10^3/uL (134-434); RBC 2.95 M/mm3 (3.60-5.2); RDW 18.6 % (11.6-15.6); WHITE BLOOD COUNT 21.4 K/mm3 (4.0-10.0)
[2023-08-06 08:11] LABS: POTASSIUM 4.3 mmol/L (3.5-5.1)
[2023-08-06 08:20] LABS: BLOOD UREA NITROGEN 60.4 mg/dL (7-18)
[2023-08-06 08:21] LABS: ALBUMIN 1.3 g/dl (3.4-5.0); CALCIUM 10.5 mg/dL (8.5-10.1)
[2023-08-06 08:23] LABS: BILIRUBIN,DIRECT 0.6 mg/dL (0.0-0.2); TOT PROT 4.7 g/dl (6.4-8.2)
[2023-08-06 08:25] LABS: ALBUMIN 1.3 g/dl (3.4-5.0); BILIRUBIN,TOTAL 1.4 mg/dL (0.2-1); CALCIUM 10.6 mg/dL (8.5-10.1); MAGNESIUM 2.2 mg/dL (1.8-2.4)
[2023-08-06 08:26] LABS: PHOSPHOROUS 2.9 mg/dL (2.5-4.9)
[2023-08-06 08:28] LABS: BILIRUBIN,TOTAL 0.9 mg/dL (0.2-1); TOT PROT 4.6 g/dl (6.4-8.2)
[2023-08-06 10:01] LABS: ANISOCYTOSIS 1+; MACROCYTOSIS 0
[2023-08-06 11:09] LABS: LACTIC ACID 4.1 mmol/L (0.4-2.0)
[2023-08-06 11:20] LABS: ARTERIAL BLD GAS O2 SATURATION 96.5 % (95-98); ARTERIAL BLOOD GAS BASE EXCESS -7.2 mmol/L (-2-2); ARTERIAL BLOOD GAS PO2 83.1 mmHg (80-100); ARTERIAL BLOOD GAS pH 7.405 (7.350-7.450)
[2023-08-06 11:40] LABS: ALLENS TEST POSITIVE
[2023-08-06] MEDS: SODIUM CHLORIDE 1,000 ML IV STA (12:34)
[2023-08-06] MEDS ORDERED: oxyCODONE HCL 5 MG TABLET PO PRN (13:14)
[2023-08-06 13:52] LABS: LACTIC ACID 4.7 mmol/L (0.4-2.0)
[2023-08-06 19:42] LABS: LACTIC ACID 4.4 mmol/L (0.4-2.0)
[2023-08-06 20:49] LABS: LACTIC ACID 4.4 mmol/L (0.4-2.0)
[2023-08-06] MEDS: oxyCODONE HCL 5 MG TABLET PO PRN (22:09)
[2023-08-06 22:18] LABS: LACTIC ACID 4.6 mmol/L (0.4-2.0)
[2023-08-06 23:35] LABS: HEMATOCRIT 15.2 % (32.4-45.2); MCH 26.8 pg (25.7-33.7); MCHC 29.2 g/dl (32.0-36.0); MEAN CELL VOLUME 91.7 fl (80-96); MEAN PLT VOLUME 9.3 fl (7.5-11.1); PLATELET COUNT 126 10^3/uL (134-434); RBC 1.66 M/mm3 (3.60-5.2); RDW 20.2 % (11.6-15.6); WHITE BLOOD COUNT 13.6 K/mm3 (4.0-10.0)
[2023-08-06 23:39] LABS: HEMOGLOBIN 4.4 GM/dL (10.7-15.3)
[2023-08-06 23:57] LABS: LACTIC ACID 2.4 mmol/L (0.4-2.0)
[2023-08-07 00:29] LABS: HEMATOCRIT 24.1 % (32.4-45.2); HEMOGLOBIN 7.4 GM/dL (10.7-15.3); MCH 26.2 pg (25.7-33.7); MCHC 30.7 g/dl (32.0-36.0); MEAN CELL VOLUME 85.2 fl (80-96); MEAN PLT VOLUME 9.4 fl (7.5-11.1); PLATELET COUNT 204 10^3/uL (134-434); RBC 2.82 M/mm3 (3.60-5.2); RDW 18.8 % (11.6-15.6); WHITE BLOOD COUNT 23.2 K/mm3 (4.0-10.0)
[2023-08-07 00:58] LABS: LACTIC ACID 4.4 mmol/L (0.4-2.0)
[2023-08-07 07:59] LABS: HEMATOCRIT 23.7 % (32.4-45.2); HEMOGLOBIN 7.3 GM/dL (10.7-15.3); MCH 26.4 pg (25.7-33.7); MCHC 30.7 g/dl (32.0-36.0); MEAN CELL VOLUME 85.8 fl (80-96); MEAN PLT VOLUME 9.4 fl (7.5-11.1); PLATELET COUNT 203 10^3/uL (134-434); RBC 2.76 M/mm3 (3.60-5.2); RDW 19.5 % (11.6-15.6); WHITE BLOOD COUNT 23.6 K/mm3 (4.0-10.0)
[2023-08-07 08:15] LABS: CHLORIDE 114 mmol/L (98-107); SODIUM 140 mmol/L (136-145)
[2023-08-07 08:19] LABS: LACTIC ACID 3.8 mmol/L (0.4-2.0)
[2023-08-07 08:20] LABS: INR 3.25 (0.83-1.09); PROTHROMBIN TIME (PATIENT) 35.5 SEC (9.7-13.0)
[2023-08-07 08:21] LABS: ACTIVATED PTT 47.3 SECONDS (25.2-36.5)
[2023-08-07 08:23] LABS: ALBUMIN 1.2 g/dl (3.4-5.0); GLUCOSE,RANDOM 84 mg/dL (74-106)
[2023-08-07 08:24] LABS: MAGNESIUM 2.2 mg/dL (1.8-2.4)
[2023-08-07 08:26] LABS: ANION GAP 7 mmol/L (4-13); BLOOD UREA NITROGEN 61.2 mg/dL (7-18); CALCIUM 10.4 mg/dL (8.5-10.1); CO2 19 mmol/L (21-32); CREATININE 1.7 mg/dL (0.55-1.3); SGOT/AST 411 U/L (15-37)
[2023-08-07 08:27] LABS: BILIRUBIN,TOTAL 1.4 mg/dL (0.2-1); SGPT/ALT 149 U/L (13-61); TOT PROT 5.1 g/dl (6.4-8.2)
[2023-08-07 08:29] LABS: ALK PHOS 154 U/L (45-117)
[2023-08-07 10:20] LABS: GAMMA GLUTAMYL TRANSPEPTIDASE 192 U/L (5-85)
[2023-08-07 12:10] LABS: LACTIC ACID 4.5 mmol/L (0.4-2.0)
[2023-08-07] MEDS: VANCOMYCIN/WATER FOR INJ (PEG) 1,000 MG/200 ML BAG IVPB ONE (13:41)
[2023-08-07 16:00] LABS: LACTIC ACID 4.9 mmol/L (0.4-2.0)
[2023-08-08] MEDS: ATROPINE SULFATE 1 MG/10 ML DISP.SYRIN IVPUSH ONE (04:00)
[2023-08-08] MEDS: NOREPINEPHRINE BITARTRATE/D5W 8 MG/250 ML BAG IVPB SCH (04:00)
[2023-08-08] MEDS ORDERED: NOREPINEPHRINE 0.9 % NACL 8 MG/250 ML BAG IVPB SCH (04:00)
[2023-08-08] MEDS: EPINEPHrine/PF 1 MG/1 ML (1:1,000) AMPULE IVPUSH ONE ×2 (04:02→04:04)
[2023-08-08 04:59] LABS: HEMATOCRIT 18.4 % (32.4-45.2); MCH 26.4 pg (25.7-33.7); MCHC 29.9 g/dl (32.0-36.0); MEAN CELL VOLUME 88.3 fl (80-96); MEAN PLT VOLUME 9.5 fl (7.5-11.1); PLATELET COUNT 233 10^3/uL (134-434); RBC 2.09 M/mm3 (3.60-5.2)
[2023-08-08 05:05] LABS: HEMOGLOBIN 5.5 GM/dL (10.7-15.3)
[2023-08-08 05:13] LABS: PROTHROMBIN TIME (PATIENT) 63.6 SEC (9.7-13.0)
[2023-08-08 05:16] LABS: ACTIVATED PTT 84.5 SECONDS (25.2-36.5)
[2023-08-08 05:18] LABS: POTASSIUM 4.9 mmol/L (3.5-5.1)
[2023-08-08 05:20] LABS: ALBUMIN 1.2 g/dl (3.4-5.0); BLOOD UREA NITROGEN 71.5 mg/dL (7-18); CALCIUM 10.3 mg/dL (8.5-10.1); MAGNESIUM 2.3 mg/dL (1.8-2.4)
[2023-08-08 05:23] LABS: CREATININE 2.4 mg/dL (0.55-1.3); PHOSPHOROUS 6.6 mg/dL (2.5-4.9)
[2023-08-08 05:25] LABS: TOT PROT 4.2 g/dl (6.4-8.2)
[2023-08-08 05:28] LABS: BILIRUBIN,TOTAL 0.8 mg/dL (0.2-1)
[2023-08-08 05:33] LABS: LACTIC ACID 10.6 mmol/L (0.4-2.0)
[2023-08-08 05:53] LABS: INR 5.93 (0.83-1.09)
[2023-08-08 05:59] LABS: ANISOCYTOSIS 3+; MACROCYTOSIS 3+; ROULEAU 2+
[2023-08-08 06:28] VITALS: BP 55/37; PULSE 43; RESP 19; TEMP 96
[2023-08-09 15:08] LABS: PARATHYROID RELATED PROTEIN 2.2 pmol/L (.)
== END 2023-08-08 06:33 | disposition expired | DRG 435 ==
LOC: JER 10:35 → JERBED 16:27 → J6S 17:48 → UNDODISIN 07-28 17:35 → J4W 07-28 18:23 → JICU 08-08 03:56
PROVIDERS: ADMIT Internal Medicine; ATTEND Internal Medicine
PROC: 30233N1 Transfusion of Nonautologous Red Blood Cells into Peripheral Vein, Percutaneous Approach (ICD-10-PCS; 2023-07-26)
PROC: 0W9G3ZX Drainage of Peritoneal Cavity, Percutaneous Approach, Diagnostic (ICD-10-PCS; principal; 2023-08-02)
PROC: 0FD13ZX Extraction of Right Lobe Liver, Percutaneous Approach, Diagnostic (ICD-10-PCS; 2023-08-03)
PROC: 5A1935Z Respiratory Ventilation, Less than 24 Consecutive Hours (ICD-10-PCS; 2023-08-08)
PROC: 0BH17EZ Insertion of Endotracheal Airway into Trachea, Via Natural or Artificial Opening (ICD-10-PCS; 2023-08-08)
PROC: 5A12012 Performance of Cardiac Output, Single, Manual (ICD-10-PCS; 2023-08-08)
DX: C78.7 Secondary malignant neoplasm of liver and intrahepatic bile duct (principal); J18.9 Pneumonia, unspecified organism; J96.01 Acute respiratory failure with hypoxia; C79.10 Secondary malignant neoplasm of unspecified urinary organs; N30.41 Irradiation cystitis with hematuria; I50.22 Chronic systolic (congestive) heart failure; I13.0 Hypertensive heart and chronic kidney disease with heart failure and stage 1 through stage 4 chronic kidney disease, or unspecified chronic kidney disease; N17.9 Acute kidney failure, unspecified; D62 Acute posthemorrhagic anemia; E87.20 Acidosis, unspecified; L76.32 Postprocedural hematoma of skin and subcutaneous tissue following other procedure; R18.8 Other ascites; R53.1 Weakness; I48.91 Unspecified atrial fibrillation; Z85.3 Personal history of malignant neoplasm of breast; Z85.528 Personal history of other malignant neoplasm of kidney; Z90.5 Acquired absence of kidney; C67.9 Malignant neoplasm of bladder, unspecified; N18.9 Chronic kidney disease, unspecified; D72.829 Elevated white blood cell count, unspecified; E83.52 Hypercalcemia; I46.9 Cardiac arrest, cause unspecified; R31.9 Hematuria, unspecified
CPT/HCPCS: 0241U-QW; 36415; 36430; 36600; 47000; 70450-TC; 71045-TC-FY; 71250-TC; 71275-TC; 74018-TC-FY; 74176-TC; 76700-TC; 76942-TC; 77012-TC; 80048; 80053; 80076; 81003; 82042; 82105; 82150; 82248; 82397; 82465; 82550; 82553; 82570; 82607; 82652; 82746; 82803; 82945; 82977; 83010; 83605; 83615; 83690; 83735; 83880; 83921; 83970; 83986; 84100; 84157; 84300; 84443; 84478; 84484; 85025; 85027; 85045; 85379; 85384; 85610; 85730; 86140; 86850; 86870; 86880; 86900; 86901; 86902; 86922; 87040; 87070; 87075; 87086; 87102; 87116; 87205; 87206; 87210; 87899; 88108; 88305-TC; 88341-TC; 93005; 93010; 93306-TC; 94002; 94010; 97116-GP; 97162-GP; 99291; J0131; P9038; P9058; Q9967